=== PATIENT | female | born 1975 | race Caucasian/White ===

== ENCOUNTER → 2017-09-08 11:06 | Outpatient (CLI) | payer OTHER, BC, SELFPAY ==
--- NOTE | 2017-09-08 11:16 | XR_ITS ---
EXAM: XR lumbar spine min 4V HISTORY: ITS.REASON: RT LEG NUMBNESS, RT HIP PAIN ORDERING PHYSICIAN: April Ramirez PATIENT AGE: 42 years COMPARISON: None FINDINGS: There is mild lumbar scoliosis convex left. There is mild multilevel degenerative disc disease which is worse at L4-L5 with 8 mm anterolisthesis of L4 with bilateral pars defect involving L4. No acute fracture or dislocation. Mild degenerative disc disease also at L2-L3. No lytic or blastic change. Unremarkable SI joints. IMPRESSION: Grade 1 spondylolytic spondylolisthesis of L4 on L5 with degenerative disc disease
--- NOTE | 2017-09-08 11:16 | XR_ITS ---
XR hip RT 2-3V w/pelvis HISTORY: ITS.REASON: RT LEG NUMBNESS, RT HIP PAIN ORDERING PHYSICIAN: April Ramirez PATIENT AGE: 42 years COMPARISON: None FINDINGS: No fracture or dislocation is evident. No significant degenerative change. No lytic or blastic change. Unremarkable soft tissues IMPRESSION: Negative hip
== END ==
PROVIDERS: PCP Internal Medicine Adolescent Medicine; Visit Provider Nurse Practitioner Family
DX: M25.551 Pain in right hip (principal); R20.0 Anesthesia of skin
CPT/HCPCS: 72110; 73502

== ENCOUNTER 2017-10-07 08:30 | Outpatient (RCR) | payer OTHER, BC, SELFPAY | END 2017-10-07 12:05 | disposition home or self-care (01) | LOC: PT 08:30 | PROVIDERS: Family Provider Internal Medicine; PCP Internal Medicine Adolescent Medicine; Visit Provider Nurse Practitioner Family | DX: M25.551 Pain in right hip (principal) | CPT/HCPCS: 97110 ==

== ENCOUNTER → 2017-10-15 13:30 | Outpatient (CLI) | payer OTHER, BC, SELFPAY ==
--- NOTE | 2017-10-15 13:33 | MR_ITS ---
MR lumbar spine wo con, MR 3-d myelogram/MRCP HISTORY: Acute right-sided low back pain with sciatica and right leg pain with decreased sensation down the right leg ITS.REASON: ACUTE RIDE SIDED LOW BACK PAIN WITH SCIATICA ORDERING PHYSICIAN: Shaun García MD PATIENT AGE: 42 years COMPARISON: Radiograph of 09/08/2017 TECHNIQUE: Standard multiplanar multiecho sequences are performed without contrast. 3-D MIP and myelographic images are also rendered and reviewed FINDINGS: There is mild lumbar scoliosis convex left. The spinal cord ends at the L1-L2 level. L1-L2 and L2-L3 show mild disc desiccation. L3-L4: Mild disc desiccation with facet and ligamentum flavum hypertrophy with mild right lateral recess narrowing. L4-L5: Degenerative disc disease. Grade 1 spondylitic spondylolisthesis with bilateral pars defects are present at L4. There is 5 mm anterolisthesis of L4 and there is left lateral translation of L4 on L5 of approximately 6 mm. There is bulging disc at this level which is eccentric towards the right with minimal central disc protrusion also slightly eccentric toward the right. There is moderate to severe right-sided foraminal narrowing and there is transverse narrowing of the canal at 8 mm from the facet and ligamentum hypertrophy. There is moderate left-sided foraminal narrowing. Endplate osteophytes are present at this level. L5-S1: Mild disc desiccation with bulging disc and small central disc protrusion is slightly eccentric toward the left. T1 and T2 hyperintensities noted at L3 vertebral body posteriorly consistent with a lipoma or lipid rich hemangioma. IMPRESSION: 1. L4-L5: Degenerative disc disease. Grade 1 spondylitic spondylolisthesis with bilateral pars defects are present at L4. There is 5 mm anterolisthesis of L4 and there is left lateral translation of L4 on L5 of approximately 6 mm. There is bulging disc at this level which is eccentric towards the right with minimal central disc protrusion also slightly eccentric toward the right. There is moderate to severe right-sided foraminal narrowing and there is transverse narrowing of the canal at 8 mm from the facet and ligamentum hypertrophy. There is moderate left-sided foraminal narrowing. Endplate osteophytes are present at this level. 2. L5-S1: Mild disc desiccation with bulging disc and small central disc protrusion is slightly eccentric toward the left. 3. Mild lumbar scoliosis convex left with multilevel lumbar spondylosis and grade 1 spondylolytic spondylolisthesis of L4 on L5 with transverse canal stenosis at that level
== END ==
PROVIDERS: Family Provider Internal Medicine; PCP Internal Medicine Adolescent Medicine; Visit Provider Internal Medicine Adolescent Medicine
DX: M54.5 Low back pain (principal)
CPT/HCPCS: 72148; 76376

== ENCOUNTER → 2017-11-01 14:49 | Outpatient (POV) | payer OTHER, BC, SELFPAY ==
[2017-11-01 15:33] VITALS: BP 171/101; PULSE 63; RESP 18; O2SAT 96; BMI 41.8
--- NOTE | 2017-11-01 17:25 | HMH.PMCON ---
Assessment and Plan (1) Bulging lumbar disc Current visit: Yes Status: Chronic Category: Medical Code(s): M51.26 - Other intervertebral disc displacement, lumbar region - Assessment and plan all Dx Assessment and Plan for all problems:: I believe that this patient would do well with a lumbar epidural steroid injection at L4-L5. I also believe that the patient should still keep her appointment with her neurosurgeon. Patient is not on any pain medication. I will start her on gabapentin 100 mg 1 tab p.o. 3 times daily. I discussed starting slowly and titrating up as tolerated. Patient is currently on anti-inflammatory medications with no relief. Patient also tried physical therapy with no relief. Patient's Amadou was reviewed and appropriate. If the patient does well and tolerating the 100 mg gabapentin 3 times daily we will increase her to 300 mg 3 times daily. This note was dictated using voice recognition software may contain errors or omissions HPI - Data of Consult Consult date: 11/01/17 Requesting Physician: Sandra Laughlin APRN Primary Care Provider: Shaun García MD Family Provider: Jean-Pierre Foster MD - Consult Narrative Reason for consult: Chronic back pain and leg pain History of present illness: Ms. Jones is a 42 year old female Who presents today to discuss her back pain and leg pain. Patient states it was gradual in onset. Patient states standing increases her pain while sitting decreases her pain. Patient rates her pain as a 0 right now she is sitting. 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 Patient has tried and failed physical therapy, anti-inflammatories. Patient states that the pain is in her low back and radiates into her bilateral legs right being more prominent than left. Has had a recent MRI in her primary care physician her referral to neurosurgery. CC: Sandra Laughlin APRN [facility] History I have reviewed the patient's past medical history: Yes Medical History: Reports:: Diabetes Mellitus Type 2, Hypertension Denies:: Diabetes Mellitus Type 1 - *Social History Educational Level: Completed College Alcohol Intake: never Occupational Status: employed Household Members: spouse - Psychiatric History Expresses thoughts of harming self/others: None Suicide Plan Description: No Plan *Family Hx:: Diabetes Review of Systems - Review of Systems ROS General: no recent weight change, no fever, no sleep disturbances Respiratory: no cough, no shortness of air, no recurring pulmonary infections Cardiovascular/Peripheral Vascular: No chest pain, No palpitations, no edema, no shortness of breath. Gastrointestinal: no incontinence, normal bowel movements reported Genitourinary: no incontinence Musculoskeletal: Back pain, right leg pain Psychiatric: normal mood/ affect, Neurological: [denies weakness in extremities], [denies balance issues] Meds Home Medications Medication Instructions Recorded Confirmed Type Diclofenac Sodium [Diclofenac 75mg 75 mg PO BID 11/01/17 11/01/17 History Tab] Metformin HCl [Metformin HCl] 1,000 mg PO BID 11/01/17 11/01/17 History Allergies Allergy/AdvReac Type Severity Reaction Status Date / Time lisinopril AdvReac Verified 11/01/17 15:06 Objective Vital signs: Pulse Resp BP Pulse Ox 63 18 171/101 96 11/01/17 15:33 11/01/17 15:33 11/01/17 15:33 11/01/17 15:33 Narrative: Physical Exam General: Alert and oriented x3, no acute distress, pleasant and cooperative, [on room air] Lungs: Resps E/U, Symmetrical chest expansion, Eyes: PERRL Musculoskeletal: Flexion and extension of lumbar spine somewhat guarded secondary to pain, deep tendon reflexes normal, strength in upper and lower extremities [5/5], slightly into gait noted, positive straight leg test at 30? bilaterally. Neurological: speech clear, supervisor pit and auxiliaries equal, no gross sensory deficitsIMPRES
--- NOTE | 2017-11-01 17:28 | P.CONS_ITS ---
Assessment and Plan (1) Bulging lumbar disc Current visit: Yes Status: Chronic Category: Medical Code(s): M51.26 - Other intervertebral disc displacement, lumbar region - Assessment and plan all Dx Assessment and Plan for all problems:: I believe that this patient would do well with a lumbar epidural steroid injection at L4-L5. I also believe that the patient should still keep her appointment with her neurosurgeon. Patient is not on any pain medication. I will start her on gabapentin 100 mg 1 tab p.o. 3 times daily. I discussed starting slowly and titrating up as tolerated. Patient is currently on anti- inflammatory medications with no relief. Patient also tried physical therapy with no relief. Patient's Amadou was reviewed and appropriate. If the patient does well and tolerating the 100 mg gabapentin 3 times daily we will increase her to 300 mg 3 times daily. This note was dictated using voice recognition software may contain errors or omissions HPI - Data of Consult Consult date: 11/01/17 Requesting Physician: Sandra Laughlin APRN Primary Care Provider: Shaun García MD Family Provider: Jean-Pierre Foster MD - Consult Narrative Reason for consult: Chronic back pain and leg pain History of present illness: Ms. Jones is a 42 year old female Who presents today to discuss her back pain and leg pain. Patient states it was gradual in onset. Patient states standing increases her pain while sitting decreases her pain. Patient rates her pain as a 0 right now she is sitting. 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 Patient has tried and failed physical therapy, anti-inflammatories. Patient states that the pain is in her low back and radiates into her bilateral legs right being more prominent than left. Has had a recent MRI in her primary care physician her referral to neurosurgery. CC: Sandra Laughlin APRN [facility] History I have reviewed the patient's past medical history: Yes Medical History: Reports:: Diabetes Mellitus Type 2, Hypertension Denies:: Diabetes Mellitus Type 1 - *Social History Educational Level: Completed College Alcohol Intake: never Occupational Status: employed Household Members: spouse - Psychiatric History Expresses thoughts of harming self/others: None Suicide Plan Description: No Plan *Family Hx:: Diabetes Review of Systems - Review of Systems ROS General: no recent weight change, no fever, no sleep disturbances Respiratory: no cough, no shortness of air, no recurring pulmonary infections Cardiovascular/Peripheral Vascular: No chest pain, No palpitations, no edema, no shortness of breath. Gastrointestinal: no incontinence, normal bowel movements reported Genitourinary: no incontinence Musculoskeletal: Back pain, right leg pain Psychiatric: normal mood/ affect, Neurological: [denies weakness in extremities], [denies balance issues] Meds Home Medications Medication Instructions Recorded Confirmed Type Diclofenac Sodium [Diclofenac 75mg 75 mg PO BID 11/01/17 11/01/17 History Tab] Metformin HCl [Metformin HCl] 1,000 mg PO BID 11/01/17 11/01/17 History Allergies Allergy/AdvReac Type Severity Reaction Status Date / Time lisinopril AdvReac Verified 11/01/17 15:06 Objective Vital signs: Pulse Resp BP Pulse Ox 63 18 171/101 96 11/01/17 15:33 11/01/17 15:33 11/01/17 1
--- NOTE | 2017-11-17 08:47 | PC.PHONENOTE ---
called in Rx for Gabapentin 300mg TID with 2 refills to [facility] pharmacy in [place], after confirming medication dose with ADILENE Urrutia
== END ==
PROVIDERS: Family Provider Internal Medicine; PCP Internal Medicine Adolescent Medicine; Visit Provider Clinical Nurse Specialist Family Health
DX: M51.26 Other intervertebral disc displacement, lumbar region (principal)
CPT/HCPCS: 99202

== ENCOUNTER → 2017-11-11 13:52 | Outpatient (POV) | payer OTHER, BC, SELFPAY ==
--- NOTE | 2017-11-11 | XR_ITS ---
EXAM: XR lumbar spine min 4V HISTORY: ITS.REASON: BACK PAIN ORDERING PHYSICIAN: Reilly Mckeon PATIENT AGE: 42 years COMPARISON: 09/08/2017 TECHNIQUE: Standing flexion and extension and neutral lateral images are obtained along with an AP view of the lumbar spine. FINDINGS: There is grade 2 spondylolisthesis of L4 on L5 with degenerative disc disease at that level. In the neutral position this measures approximately 11 mm increasing to 16 mm on the flexion images and proximal 15 mm on the extension images. There is degenerative disc disease from L1 to S1 with mild lumbar scoliosis convex left. IMPRESSION: Lumbar spondylosis with grade 2 spondylolisthesis of L4 on L5 slightly increases with flexion and extension compared to standing neutral position
== END ==
PROVIDERS: Family Provider Internal Medicine; PCP Internal Medicine Adolescent Medicine; Visit Provider Neurological Surgery
DX: M51.26 Other intervertebral disc displacement, lumbar region (principal)
CPT/HCPCS: 72110

== ENCOUNTER → 2017-12-13 11:23 | Outpatient (POV) | payer OTHER, BC, SELFPAY ==
[2017-12-13 11:52] VITALS: BP 140/73; PULSE 57; RESP 20; O2SAT 98; BMI 41.0
--- NOTE | 2017-12-13 12:04 | HMH.PAINSOAP ---
[facility] Pain Management SOAP Note Subjective:: Patient is a pleasant 42-year-old white female who we are treating for low back pain with lumbar radiculopathy. Patient had a neurosurgical consultation which showed that she is potentially a surgical candidate patient would like to try conservative measures prior to committing to surgery. Patient is following up after lumbar epidural steroid injection. She reports 90% relief for over a week. Patient's pain has begun to return. Patient rates her pain a 4 out of 10 while she is sitting down. Patient has numbness in her right leg going to her toes. Patient also on gabapentin 300 mg 1 p.o. 3 times daily she denies any side effects with this medication. Patient is interested in continuing with injective therapy and completing 3 lumbar epidural injection steroid injections in order to see if this therapy will benefit her. ROS General: no recent weight change, no fever, no sleep disturbances Respiratory: no cough, no shortness of air, no recurring pulmonary infections Cardiovascular/Peripheral Vascular: No chest pain, No palpitations, no edema, no shortness of breath. Gastrointestinal: no incontinence, normal bowel movements reported Genitourinary: no incontinence Musculoskeletal: Back pain, right leg pain Psychiatric: normal mood/ affect, Neurological: This in right lower extremity at times, [denies balance issues] Objective:: Physical Exam General: Alert and oriented x3, no acute distress, pleasant and cooperative, [on room air] Lungs: Resps E/U, Symmetrical chest expansion, Eyes: PERRL Musculoskeletal: Flexion and extension of bar spine somewhat guarded secondary to pain, diminished reflexes in right lower extremity, strength in upper and lower extremities [5/5], [abnormal gait noted] Neurological: speech clear, leasing coordinator equal, no gross sensory deficits Assessment:: Degenerative disc disease of the lumbar spine with lumbar radiculopathy Plan:: We will increase her gabapentin to 600 mg 1 p.o. 3 times daily at her next refill. Patient denies any side effects to this medication. Patient is still working full-time. Patient is a potential neurosurgical candidate however she wants to try injective therapy prior to committing to surgery. Patient had significant relief with her last injection and wishes to repeat it. Patient tried and failed anti-inflammatories, medications, for therapy. I will follow-up with this patient after her second lumbar epidural steroid injection.. This note was dictated using voice recognition software and may contain errors or omissions
--- NOTE | 2017-12-13 12:07 | P.CONS_ITS ---
[facility] Pain Management SOAP Note Subjective:: Patient is a pleasant 42-year-old white female who we are treating for low back pain with lumbar radiculopathy. Patient had a neurosurgical consultation which showed that she is potentially a surgical candidate patient would like to try conservative measures prior to committing to surgery. Patient is following up after lumbar epidural steroid injection. She reports 90% relief for over a week. Patient's pain has begun to return. Patient rates her pain a 4 out of 10 while she is sitting down. Patient has numbness in her right leg going to her toes. Patient also on gabapentin 300 mg 1 p.o. 3 times daily she denies any side effects with this medication. Patient is interested in continuing with injective therapy and completing 3 lumbar epidural injection steroid injections in order to see if this therapy will benefit her. ROS General: no recent weight change, no fever, no sleep disturbances Respiratory: no cough, no shortness of air, no recurring pulmonary infections Cardiovascular/Peripheral Vascular: No chest pain, No palpitations, no edema, no shortness of breath. Gastrointestinal: no incontinence, normal bowel movements reported Genitourinary: no incontinence Musculoskeletal: Back pain, right leg pain Psychiatric: normal mood/ affect, Neurological: This in right lower extremity at times, [denies balance issues] Objective:: Physical Exam General: Alert and oriented x3, no acute distress, pleasant and cooperative, [ on room air] Lungs: Resps E/U, Symmetrical chest expansion, Eyes: PERRL Musculoskeletal: Flexion and extension of bar spine somewhat guarded secondary to pain, diminished reflexes in right lower extremity, strength in upper and lower extremities [5/5], [abnormal gait noted] Neurological: speech clear, manager food safety equal, no gross sensory deficits Assessment:: Degenerative disc disease of the lumbar spine with lumbar radiculopathy Plan:: We will increase her gabapentin to 600 mg 1 p.o. 3 times daily at her next refill. Patient denies any side effects to this medication. Patient is still working full-time. Patient is a potential neurosurgical candidate however she wants to try injective therapy prior to committing to surgery. Patient had significant relief with her last injection and wishes to repeat it. Patient tried and failed anti-inflammatories, medications, for therapy. I will follow- up with this patient after her second lumbar epidural steroid injection.. This note was dictated using voice recognition software and may contain errors or omissions
--- NOTE | 2017-12-14 12:54 | PC.PHONENOTE ---
12/13/17--called in Rx Gabapentin 600mg TID with 2 refills to pt's pharmacy
== END ==
PROVIDERS: Family Provider Internal Medicine; PCP Internal Medicine Adolescent Medicine; Visit Provider Clinical Nurse Specialist Family Health
DX: M54.16 Radiculopathy, lumbar region (principal)
CPT/HCPCS: 99212

== ENCOUNTER → 2018-01-17 15:21 | Outpatient (POV) | payer OTHER, BC, SELFPAY ==
--- NOTE | 2018-01-17 16:09 | HMH.PAINSOAP ---
[facility] Pain Management SOAP Note Subjective:: Patient is a 42-year-old white female who presents today for follow-up after her second lumbar epidural steroid injection. She states she did get relief after 3 or 4 days. Patient is not having long-term relief with this. Patient is interested in finishing the third of the lumbar epidural steroid injection series. Patient has been deemed a surgical candidate. However she would like to try conservative treatments including epidural injections prior to this decision. Patient also is still working full-time. Patient is currently on gabapentin 600 mg 1 4 times daily. Patient is also asking if there is any other medications that she would be able to take to help her with her shifts at work. ROS General: no recent weight change, no fever, no sleep disturbances Respiratory: no cough, no shortness of air, no recurring pulmonary infections Cardiovascular/Peripheral Vascular: No chest pain, No palpitations, no edema, no shortness of breath. Gastrointestinal: no incontinence, normal bowel movements reported Genitourinary: no incontinence Musculoskeletal: Back pain, bilateral leg pain Psychiatric: normal mood/ affect, [denies depression], [denies anxiety] Neurological: [denies weakness in extremities], [denies balance issues] Objective:: Physical Exam General: Alert and oriented x3, no acute distress, pleasant and cooperative, [on room air] Lungs: Resps E/U, Symmetrical chest expansion, Eyes: PERRL Musculoskeletal: Flexion and extension of lumbar spine somewhat guarded secondary to pain, deep tendon reflexes normal, strength in upper and lower extremities [5/5], antalgic gait noted, positive straight leg raise test bilaterally at 30? Neurological: speech clear, ict project manager equal, no gross sensory deficits Assessment:: Degenerative disc disease of the lumbar spine with lumbar radiculopathy Plan:: We will schedule her last L4-L5 lumbar epidural steroid injection. I believe that after the completion of this she will be able to make a better decision in regards to surgery. Patient and I had a discussion about medications. We will start her on tramadol 50 mg 1 p.o. 3 times daily as needed. Patient's BNE #[id number] reviewed and appropriate. Dr. Cortes has reviewed this and agrees with this plan of care. I will follow-up with the patient after her third lumbar epidural steroid injection. Patient's tried and failed stretching, physical therapy, anti-inflammatories, medications. This note was dictated using voice recognition software and may contain errors or omissions
--- NOTE | 2018-01-17 16:12 | P.CONS_ITS ---
[facility] Pain Management SOAP Note Subjective:: Patient is a 42-year-old white female who presents today for follow-up after her second lumbar epidural steroid injection. She states she did get relief after 3 or 4 days. Patient is not having long-term relief with this. Patient is interested in finishing the third of the lumbar epidural steroid injection series. Patient has been deemed a surgical candidate. However she would like to try conservative treatments including epidural injections prior to this decision. Patient also is still working full-time. Patient is currently on gabapentin 600 mg 1 4 times daily. Patient is also asking if there is any other medications that she would be able to take to help her with her shifts at work. ROS General: no recent weight change, no fever, no sleep disturbances Respiratory: no cough, no shortness of air, no recurring pulmonary infections Cardiovascular/Peripheral Vascular: No chest pain, No palpitations, no edema, no shortness of breath. Gastrointestinal: no incontinence, normal bowel movements reported Genitourinary: no incontinence Musculoskeletal: Back pain, bilateral leg pain Psychiatric: normal mood/ affect, [denies depression], [denies anxiety] Neurological: [denies weakness in extremities], [denies balance issues] Objective:: Physical Exam General: Alert and oriented x3, no acute distress, pleasant and cooperative, [ on room air] Lungs: Resps E/U, Symmetrical chest expansion, Eyes: PERRL Musculoskeletal: Flexion and extension of lumbar spine somewhat guarded secondary to pain, deep tendon reflexes normal, strength in upper and lower extremities [5/5], antalgic gait noted, positive straight leg raise test bilaterally at 30? Neurological: speech clear, production grip equal, no gross sensory deficits Assessment:: Degenerative disc disease of the lumbar spine with lumbar radiculopathy Plan:: We will schedule her last L4-L5 lumbar epidural steroid injection. I believe that after the completion of this she will be able to make a better decision in regards to surgery. Patient and I had a discussion about medications. We will start her on tramadol 50 mg 1 p.o. 3 times daily as needed. Patient's BEN # [id number] reviewed and appropriate. Dr. Cortes has reviewed this and agrees with this plan of care. I will follow-up with the patient after her third lumbar epidural steroid injection. Patient's tried and failed stretching, physical therapy, anti-inflammatories, medications. This note was dictated using voice recognition software and may contain errors or omissions
[2018-01-17 16:16] VITALS: BP 152/83; PULSE 79; RESP 18; O2SAT 98; BMI 41.0
--- NOTE | 2018-01-18 09:36 | PC.PHONENOTE ---
01/14/18-Called in Rx for Gabapentin 600mg QID with no refills and Tramadol 50mg TID with no refills per provider order
== END ==
PROVIDERS: Family Provider Internal Medicine; PCP Internal Medicine Adolescent Medicine; Visit Provider Clinical Nurse Specialist Family Health
DX: M54.16 Radiculopathy, lumbar region (principal)
CPT/HCPCS: 99212

== ENCOUNTER → 2018-03-08 09:47 | Outpatient (POV) | payer OTHER, BC, SELFPAY ==
[2018-03-08 10:03] VITALS: BP 142/72; PULSE 84; RESP 18; O2SAT 98; BMI 44.1
--- NOTE | 2018-03-08 12:54 | HMH.PAINSOAP ---
[facility] Pain Management SOAP Note Subjective:: Patient is a pleasant 43-year-old white female who we are treating for low back pain with lumbar radiculopathy symptoms. Patient status post 3 lumbar epidural steroid injections. Patient did not get any relief from her last epidural injection. Patient is a surgical candidate. Patient states she does not want to have surgery. At last visit Dr. Cortes talk to her about how he believed that she should proceed with surgical intervention prior to trying a neurostimulator. Patient's currently on gabapentin 600 mg 1 p.o. 4 times daily and tramadol 50 mg 1 p.o. 3 times daily. Patient states that this does help somewhat. Patient's BEN #[id number] reviewed and appropriate. ROS General: no recent weight change, no fever, no sleep disturbances Respiratory: no cough, no shortness of air, no recurring pulmonary infections Cardiovascular/Peripheral Vascular: No chest pain, No palpitations, no edema, no shortness of breath. Gastrointestinal: no incontinence, normal bowel movements reported Genitourinary: no incontinence Musculoskeletal: Back pain, leg pain Psychiatric: normal mood/ affect Neurological: [denies weakness in extremities], [denies balance issues] Objective:: Physical Exam General: Alert and oriented x3, no acute distress, pleasant and cooperative, [on room air] Lungs: Resps E/U, Symmetrical chest expansion, Eyes: PERRL Musculoskeletal: Flexion and extension of lumbar spine somewhat guarded secondary to pain, deep tendon reflexes normal, strength in upper and lower extremities [5/5], [abnormal gait noted] Neurological: speech clear, paint roller cover machine 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 4 times daily and tramadol 50 mg 1 p.o. 3 times daily. I will follow-up with this patient in 1 month. Patient would like to rediscuss neuro stimulation. This note was dictated using voice recognition software and may contain errors or omissions
--- NOTE | 2018-03-08 12:57 | P.CONS_ITS ---
[facility] Pain Management SOAP Note Subjective:: Patient is a pleasant 43-year-old white female who we are treating for low back pain with lumbar radiculopathy symptoms. Patient status post 3 lumbar epidural steroid injections. Patient did not get any relief from her last epidural injection. Patient is a surgical candidate. Patient states she does not want to have surgery. At last visit Dr. Cortes talk to her about how he believed that she should proceed with surgical intervention prior to trying a neurostimulator. Patient's currently on gabapentin 600 mg 1 p.o. 4 times daily and tramadol 50 mg 1 p.o. 3 times daily. Patient states that this does help somewhat. Patient's BEN #[id number] reviewed and appropriate. ROS General: no recent weight change, no fever, no sleep disturbances Respiratory: no cough, no shortness of air, no recurring pulmonary infections Cardiovascular/Peripheral Vascular: No chest pain, No palpitations, no edema, no shortness of breath. Gastrointestinal: no incontinence, normal bowel movements reported Genitourinary: no incontinence Musculoskeletal: Back pain, leg pain Psychiatric: normal mood/ affect Neurological: [denies weakness in extremities], [denies balance issues] Objective:: Physical Exam General: Alert and oriented x3, no acute distress, pleasant and cooperative, [ on room air] Lungs: Resps E/U, Symmetrical chest expansion, Eyes: PERRL Musculoskeletal: Flexion and extension of lumbar spine somewhat guarded secondary to pain, deep tendon reflexes normal, strength in upper and lower extremities [5/5], [abnormal gait noted] Neurological: speech clear, manager operating equal, no gross sensory deficits Assessment:: Degenerative disc disease of lumbar spine with lumbar radiculopathy Plan:: Patient is to continue on her gabapentin 600 mg 1 p.o. 4 times daily and tramadol 50 mg 1 p.o. 3 times daily. I will follow-up with this patient in 1 month. Patient would like to rediscuss neuro stimulation. This note was dictated using voice recognition software and may contain errors or omissions
== END ==
PROVIDERS: Family Provider Internal Medicine; PCP Internal Medicine Adolescent Medicine; Visit Provider Clinical Nurse Specialist Family Health
DX: M54.16 Radiculopathy, lumbar region (principal)
CPT/HCPCS: 99212

== ENCOUNTER → 2018-03-25 10:44 | Outpatient (POV) | payer OTHER, BC, SELFPAY ==
[2018-03-25 11:23] VITALS: BP 144/87; PULSE 74; RESP 20; O2SAT 98; BMI 44.1
--- NOTE | 2018-03-25 11:32 | P.CONS_ITS ---
[facility] Pain Management SOAP Note Subjective:: This patient is a pleasant 43-year-old white female who we are treating for low back pain with lumbar radicular symptoms. She had only gotten temporary relief from the lumbar epidural steroid injections. She still has significant right leg radicular symptoms. She was told she needed surgery by Dr. Mckeon. However , because of financial reasons she is unable to have surgery at this time. We will temporize her symptoms to keep her comfortable until she can have definitive treatment. I do believe that she would benefit from medial branch blocks to L4-5 and L5-S1 on the right side. We will plan on right sided medial branch blocks of L4-5 and L5-S1. She also may benefit from a transforaminal epidural steroid injection at L4-L5. Objective:: Alert and oriented ?3 no acute distress. Patient has an antalgic gait. Motor strength of the lower extremities is 4 out of 5 on the right and 5 out of 5 on the left. There is no gross sensory deficit at this time. Assessment:: Degenerative disc disease of lumbar spine with lumbar radiculopathy symptoms down the right leg with bulging disc at L4-L5 and facet arthropathy at L4-5 and L5-S1. Plan:: We will seek approval for right sided medial branch blocks of L4-L5 and L5-S1. We will reevaluate symptoms after these injections. She also may benefit from right-sided transforaminal epidural steroid injection at L4-L5 in the future. We will also give her prednisone 20 mg 1 tablet twice a day for 5 days to help with her acute symptoms.
== END ==
PROVIDERS: Family Provider Internal Medicine; PCP Internal Medicine Adolescent Medicine; Visit Provider Anesthesiology
DX: M51.16 Intervertebral disc disorders with radiculopathy, lumbar region (principal); M51.26 Other intervertebral disc displacement, lumbar region; M54.06 Panniculitis affecting regions of neck and back, lumbar region
CPT/HCPCS: 99212

== ENCOUNTER → 2018-04-25 15:24 | Outpatient (POV) | payer OTHER, BC, SELFPAY ==
[2018-04-25 15:33] VITALS: BP 148/76; PULSE 88; RESP 18; O2SAT 98; BMI 42.5
--- NOTE | 2018-04-25 15:35 | HMH.PAINSOAP ---
[facility] Pain Management SOAP Note Subjective:: Patient is a pleasant 43-year-old white female who is following up after lumbar medial branch block. Patient states she has been pain-free since the injection. Patient has been hiking and much more functional. Patient would like to follow-up on an as-needed basis for these injections. We did briefly talk about a RFA. Patient may be interested in this in the future. ROS General: no recent weight change, no fever, no sleep disturbances Respiratory: no cough, no shortness of air, no recurring pulmonary infections Cardiovascular/Peripheral Vascular: No chest pain, No palpitations, no edema, no shortness of breath. Gastrointestinal: no incontinence, normal bowel movements reported Genitourinary: no incontinence Musculoskeletal: Back pain Psychiatric: normal mood/ affect Neurological: [denies weakness in extremities], [denies balance issues] Objective:: Physical Exam General: Alert and oriented x3, no acute distress, pleasant and cooperative, [on room air] Lungs: Resps E/U, Symmetrical chest expansion, Eyes: PERRL Musculoskeletal: Flexion and extension of lumbar spine somewhat guarded secondary to pain, deep tendon reflexes normal, strength in upper and lower extremities [5/5], normal gait noted Neurological: speech clear, blue 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 Patient's been instructed to call the office if she needs anything prior to this appointment. This note was dictated using voice recognition software and may contain errors or omissions
== END ==
PROVIDERS: Family Provider Internal Medicine; PCP Internal Medicine Adolescent Medicine; Visit Provider Clinical Nurse Specialist Family Health
DX: M51.36 Other intervertebral disc degeneration, lumbar region (principal); M47.896 Other spondylosis, lumbar region; M54.06 Panniculitis affecting regions of neck and back, lumbar region
CPT/HCPCS: 99213

== ENCOUNTER → 2018-06-13 09:57 | Outpatient (POV) | payer OTHER, BC, SELFPAY ==
[2018-06-13 10:10] VITALS: BP 160/85; PULSE 75; RESP 18; O2SAT 98; BMI 45.6
--- NOTE | 2018-06-13 10:50 | HMH.PAINSOAP ---
[facility] Pain Management SOAP Note Subjective:: Patient is a pleasant 43-year-old white female who presents today for follow-up. Patient has had good relief we will branch blocks bilaterally at L3-L4 L4-L5 L5-S1. Patient has had 3 months relief. Patient states her pain has returned she rates an 8 out of 10. Like to move forward with another round of medial branch blocks. Patient is not on any anticoagulation therapy. ROS General: no recent weight change, no fever, no sleep disturbances Respiratory: no cough, no shortness of air, no recurring pulmonary infections Cardiovascular/Peripheral Vascular: No chest pain, No palpitations, no edema, no shortness of breath. Gastrointestinal: no incontinence, normal bowel movements reported Genitourinary: no incontinence Musculoskeletal: Back pain Psychiatric: normal mood/ affect Neurological: [denies weakness in extremities], [denies balance issues] Objective:: Physical Exam General: Alert and oriented x3, no acute distress, pleasant and cooperative, [on room air] Lungs: Resps E/U, Symmetrical chest expansion, Eyes: PERRL Musculoskeletal: Flexion and extension of lumbar spine somewhat guarded secondary to pain, deep tendon reflexes normal, strength in upper and lower extremities [5/5], slightly antalgic gait noted, positive Kemps test bilaterally Neurological: speech clear, 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 Given the efficacy in the past I believe it would be beneficial. I will follow-up with the patient after her injection. This note was dictated using voice recognition software and may contain errors or omissions
--- NOTE | 2018-06-13 10:53 | P.CONS_ITS ---
[facility] Pain Management SOAP Note Subjective:: Patient is a pleasant 43-year-old white female who presents today for follow-up. Patient has had good relief we will branch blocks bilaterally at L3-L4 L4-L5 L5-S1. Patient has had 3 months relief. Patient states her pain has returned she rates an 8 out of 10. Like to move forward with another round of medial branch blocks. Patient is not on any anticoagulation therapy. ROS General: no recent weight change, no fever, no sleep disturbances Respiratory: no cough, no shortness of air, no recurring pulmonary infections Cardiovascular/Peripheral Vascular: No chest pain, No palpitations, no edema, no shortness of breath. Gastrointestinal: no incontinence, normal bowel movements reported Genitourinary: no incontinence Musculoskeletal: Back pain Psychiatric: normal mood/ affect Neurological: [denies weakness in extremities], [denies balance issues] Objective:: Physical Exam General: Alert and oriented x3, no acute distress, pleasant and cooperative, [on room air] Lungs: Resps E/U, Symmetrical chest expansion, Eyes: PERRL Musculoskeletal: Flexion and extension of lumbar spine somewhat guarded secondary to pain, deep tendon reflexes normal, strength in upper and lower extremities [5/5], slightly antalgic gait noted, positive Kemps test bilaterally Neurological: speech clear, sack 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 Given the efficacy in the past I believe it would be beneficial. I will follow-up with the patient after her injection. This note was dictated using voice recognition software and may contain errors or omissions
== END ==
PROVIDERS: Family Provider Internal Medicine; PCP Internal Medicine Adolescent Medicine; Visit Provider Clinical Nurse Specialist Family Health
DX: M47.896 Other spondylosis, lumbar region (principal); M51.36 Other intervertebral disc degeneration, lumbar region; M46.86 Other specified inflammatory spondylopathies, lumbar region
CPT/HCPCS: 99213

== ENCOUNTER → 2018-07-05 13:15 | Outpatient (POV) | payer OTHER, BC, SELFPAY ==
[2018-07-05 13:35] VITALS: BP 144/81; PULSE 74; RESP 18; O2SAT 98; BMI 45.6
--- NOTE | 2018-07-05 13:46 | HMH.PAINSOAP ---
[facility] Pain Management SOAP Note Subjective:: Patient is a pleasant 43-year-old white female who presents today after medial branch block. Patient had extremely good relief with first round of blocks however she has not had as much relief with this round she would like to try one more time to see if she has any more success with it. Patient is still having a great deal of pain in her lower back. Patient on gabapentin and tramadol and is asking for something different A. We will try Lyrica. Patient is in need of back surgery however she is trying to avoid this for some time. Patient is going to be going for gastric bypass in September and would like to wait till after that. ROS General: no recent weight change, no fever, no sleep disturbances Respiratory: no cough, no shortness of air, no recurring pulmonary infections Cardiovascular/Peripheral Vascular: No chest pain, No palpitations, no edema, no shortness of breath. Gastrointestinal: no incontinence, normal bowel movements reported Genitourinary: no incontinence Musculoskeletal: Back pain Psychiatric: normal mood/ affect Neurological: [denies weakness in extremities], [denies balance issues] Objective:: Physical Exam General: Alert and oriented x3, no acute distress, pleasant and cooperative, [on room air] Lungs: Resps E/U, Symmetrical chest expansion, Eyes: PERRL Musculoskeletal: Flexion and extension of lumbar spine somewhat guarded secondary to pain, deep tendon reflexes normal, strength in upper and lower extremities [5/5], [abnormal gait noted] Neurological: speech clear, 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 Patient is continuing a home stretching program. Patient is on anti-inflammatories. Patient is not on any anticoagulation therapy. We will conduct daily and give her a 2-week trial of the right if it is beneficial for her we will start her at 75 twice daily. This note was dictated using voice recognition software and may contain errors or omissions
--- NOTE | 2018-07-07 09:34 | PC.PHONENOTE ---
called in Rx for Lyrica 75mg BID #[id number] with no refills per provider order.
== END ==
PROVIDERS: PCP Internal Medicine Adolescent Medicine; Visit Provider Clinical Nurse Specialist Family Health
DX: M51.36 Other intervertebral disc degeneration, lumbar region (principal); M54.06 Panniculitis affecting regions of neck and back, lumbar region; M47.896 Other spondylosis, lumbar region
CPT/HCPCS: 99213

== ENCOUNTER → 2018-08-22 08:10 | Outpatient (POV) | payer OTHER, BC, SELFPAY ==
--- NOTE | 2018-08-22 08:29 | HMH.PAINSOAP ---
[facility] Pain Management SOAP Note Subjective:: Is a pleasant 43-year-old white female who presents today for follow-up after medial branch block. Patient got 80% relief of her symptoms for almost 4 weeks. Patient has had good relief with medial branches in the past. Patient is interested in a RFA. Patient has tried and failed physical therapy, anti-inflammatories, medications. Patient is continuing to do try to work. Patient is unable to function and do activities of daily living with her current pain level. She is continuing a home stretching program. rates her pain today a 6 out of 10 ROS General: no recent weight change, no fever, no sleep disturbances Respiratory: no cough, no shortness of air, no recurring pulmonary infections Cardiovascular/Peripheral Vascular: No chest pain, No palpitations, no edema, no shortness of breath. Gastrointestinal: no incontinence, normal bowel movements reported Genitourinary: no incontinence Musculoskeletal: Back pain Psychiatric: normal mood/ affect, [denies depression], [denies anxiety] Neurological: [denies weakness in extremities], [denies balance issues] Objective:: Physical Exam General: Alert and oriented x3, no acute distress, pleasant and cooperative, [on room air] Lungs: Resps E/U, Symmetrical chest expansion, Eyes: PERRL Musculoskeletal: Flexion and extension of lumbar spine somewhat guarded secondary to pain, deep tendon reflexes normal, strength in upper and lower extremities [5/5], slightly antalgic gait noted, positive Kemps test bilateral lumbar spine, positive facet loading Neurological: speech clear, lasting machine operator equal, no gross sensory deficits Assessment:: Degenerative disc disease lumbar spine with facet arthropathy and lumbar spondylosis Plan:: We will schedule a L3-L4 L4-L5 L5-S1 bilateral RFA. We will start with the right side and then in 2 weeks do the left side. Patient has had successful medial branch block. She is not on any anticoagulation therapy. We will also give her a one-time prescription of [place] 5 mg 1 p.o. 3 times daily to help her with her work until she is able to have a RFA. Patient has been prescribed a controlled substance after being counseled on the medication, medication safety, and possible side effects. BEN report has been obtained and reviewed prior to prescription and found to be appropriate. Opioid contract was reviewed and signed by the patient, and that they have agreed to all of the terms set forth by our compliance program. This note was dictated using voice recognition software and may contain errors or omissions
--- NOTE | 2018-08-22 08:32 | P.CONS_ITS ---
[facility] Pain Management SOAP Note Subjective:: Is a pleasant 43-year-old white female who presents today for follow-up after medial branch block. Patient got 80% relief of her symptoms for almost 4 weeks. Patient has had good relief with medial branches in the past. Patient is interested in a RFA. Patient has tried and failed physical therapy, anti- inflammatories, medications. Patient is continuing to do try to work. Patient is unable to function and do activities of daily living with her current pain level. She is continuing a home stretching program. rates her pain today a 6 out of 10 ROS General: no recent weight change, no fever, no sleep disturbances Respiratory: no cough, no shortness of air, no recurring pulmonary infections Cardiovascular/Peripheral Vascular: No chest pain, No palpitations, no edema, no shortness of breath. Gastrointestinal: no incontinence, normal bowel movements reported Genitourinary: no incontinence Musculoskeletal: Back pain Psychiatric: normal mood/ affect, [denies depression], [denies anxiety] Neurological: [denies weakness in extremities], [denies balance issues] Objective:: Physical Exam General: Alert and oriented x3, no acute distress, pleasant and cooperative, [on room air] Lungs: Resps E/U, Symmetrical chest expansion, Eyes: PERRL Musculoskeletal: Flexion and extension of lumbar spine somewhat guarded secondary to pain, deep tendon reflexes normal, strength in upper and lower extremities [5/5], slightly antalgic gait noted, positive Kemps test bilateral lumbar spine, positive facet loading Neurological: speech clear, 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 We will start with the right side and then in 2 weeks do the left side. Patient has had successful medial branch block. She is not on any anticoagulation therapy. We will also give her a one-time prescription of [place] 5 mg 1 p.o. 3 times daily to help her with her work until she is able to have a RFA. Patient has been prescribed a controlled substance after being counseled on the medication, medication safety, and possible side effects. BEN report has been obtained and reviewed prior to prescription and found to be appropriate. Opioid contract was reviewed and signed by the patient, and that they have agreed to all of the terms set forth by our compliance program. This note was dictated using voice recognition software and may contain errors or omissions
[2018-08-22 08:33] VITALS: BP 138/90; PULSE 68; RESP 18; O2SAT 99; BMI 45.6
== END ==
PROVIDERS: PCP Internal Medicine Adolescent Medicine; Visit Provider Clinical Nurse Specialist Family Health
DX: M51.36 Other intervertebral disc degeneration, lumbar region (principal); M54.06 Panniculitis affecting regions of neck and back, lumbar region; M47.896 Other spondylosis, lumbar region
CPT/HCPCS: 99213

== ENCOUNTER → 2018-09-01 17:00 | Outpatient (CLI) | payer OTHER, BC, SELFPAY ==
[2018-09-02 14:09] LABS: Alanine Aminotransferase 23 U/L (12-78); Albumin Level 3.7 gm/dL (3.4-5.0); Albumin/Globulin Ratio 0.9 (1.1-1.8); Alkaline Phosphatase 73 U/L (46-116); Anion Gap 14.4 mEq/L (5-15); Aspartate Amino Transferase 13 U/L (15-37); Bilirubin,Total 0.5 mg/dL (0.2-1.0); Blood Urea Nitrogen 10 mg/dL (7-18); Calcium 8.7 mg/dL (8.5-10.1); Carbon Dioxide 25 mmol/L (21.0-32.0); Chloride 100 mmol/L (98-107); Chol/HDL Ratio 6.2 (1-3.5); Cholesterol 210 mg/dL (140-200); Creatinine,Serum 0.63 mg/dL (0.55-1.02); Estimated Glomerular Filt Rate 104 ml/min (>60); Ferritin 76 ng/mL (8-388); GFR (African American) 125 ML/MIN (>60); Glucose 156 mg/dL (74-106); HDL Cholesterol 34 mg/dL (29-89); Iron 102 ug/dl (28-170); LDL Cholesterol 147 mg/dL (0-130); Magnesium 1.6 mg/dL (1.4-2.2); Phosphorous 3.1 mg/dL (2.4-4.9); Potassium 4.4 mmoL/L (3.5-5.1); Sodium 135 mmol/L (136-145); Total Protein,Serum 7.7 gm/dL (6.4-8.2); Triglycerides 146 mg/dL (30-200); VLDL Cholesterol 29 mg/dL (0-40)
[2018-09-03 21:52] LABS: Folate 18.4 ng/mL (>3.0); Parathyroid Hormone Intact 29 pg/mL (15-65); Prealbumin 25 mg/dL (12-34); Vitamin D 25 Hydroxy 28.6 ng/mL (30.0-100.0)
[2018-09-05 08:10] LABS: Methylmalonic Acid 99 nmol/L (0-378)
== END ==
PROVIDERS: Visit Provider Nurse Practitioner Family
DX: E66.01 Morbid (severe) obesity due to excess calories (principal)
CPT/HCPCS: 80053; 80061; 82131; 82652; 82728; 82746; 83540; 83735; 83970; 84100; 84134

== ENCOUNTER → 2018-10-24 15:20 | Outpatient (POV) | payer OTHER, BC, SELFPAY ==
[2018-10-24 15:28] VITALS: BP 137/87; PULSE 90; RESP 18; O2SAT 99; BMI 45.6
--- NOTE | 2018-10-24 15:35 | HMH.PAINSOAP ---
[facility] Pain Management SOAP Note Subjective:: Patient is a pleasant 43-year-old white female who we are treating for low back pain. Patient is following up after medial branch block. Patient has had no relief of her symptoms. She rates her pain a 7 out of 10. Patient's on [place] 5 mg 1 p.o. 3 times daily. She states it does not help her much. Patient is planning on having bariatric surgery and I encouraged this. I believe that would be beneficial for her and help alleviate some of her back pain. ROS General: no recent weight change, no fever, no sleep disturbances Respiratory: no cough, no shortness of air, no recurring pulmonary infections Cardiovascular/Peripheral Vascular: No chest pain, No palpitations, no edema, no shortness of breath. Gastrointestinal: no incontinence, normal bowel movements reported Genitourinary: no incontinence Musculoskeletal: Back pain Psychiatric: normal mood/ affect Neurological: [denies weakness in extremities], [denies balance issues] Objective:: Physical Exam General: Alert and oriented x3, no acute distress, pleasant and cooperative, [on room air] Lungs: Resps E/U, Symmetrical chest expansion, Eyes: PERRL Musculoskeletal: Flexion and extension of lumbar spine somewhat guarded secondary to pain, deep tendon reflexes normal, strength in upper and lower extremities [5/5], antalgic gait noted Neurological: speech clear, engagement manager equal, no gross sensory deficits Assessment:: Degenerative disc disease lumbar spine with lumbar spondylosis and facet arthropathy Plan:: We will increase the patient's [place] to 10 mg 1 p.o. 3 times daily we will give her 2 months worth of medication we will see her back in 2 months but this time she should have had her surgical consult for her bariatric surgery. Patient has been prescribed a controlled substance after being counseled on the medication, medication safety, and possible side effects. BEN report has been obtained and reviewed prior to prescription and found to be appropriate. Opioid contract was reviewed and signed by the patient, and that they have agreed to all of the terms set forth by our compliance program. Dr. Cortes has reviewed this note and agrees with this plan of care. This note was dictated using voice recognition software and may contain errors or omissions
== END ==
PROVIDERS: PCP Internal Medicine Adolescent Medicine; Visit Provider Clinical Nurse Specialist Family Health
DX: M51.36 Other intervertebral disc degeneration, lumbar region (principal); M47.816 Spondylosis without myelopathy or radiculopathy, lumbar region; M54.06 Panniculitis affecting regions of neck and back, lumbar region
CPT/HCPCS: 99213

== ENCOUNTER → 2018-10-27 14:25 | Outpatient (CLI) | payer OTHER, BC, SELFPAY ==
--- NOTE | 2018-10-27 14:31 | XR_ITS ---
XR chest 2V HISTORY: Hypertension ITS.REASON: TYPE II DIABETES ORDERING PHYSICIAN: Arlene Frankel PATIENT AGE: 43 years COMPARISON: None FINDINGS: The cardiomediastinal silhouette and pulmonary vascularity are within normal limits. The lungs are clear without infiltrates, suspicious nodules, or pleural effusions. No acute bony abnormalities. IMPRESSION: Negative chest, no acute finding
== END ==
PROVIDERS: PCP Internal Medicine Adolescent Medicine; Visit Provider Physician Assistant
DX: R10.13 Epigastric pain (principal); E11.9 Type 2 diabetes mellitus without complications; E66.01 Morbid (severe) obesity due to excess calories; M54.9 Dorsalgia, unspecified
CPT/HCPCS: 71046; 93005

== ENCOUNTER → 2018-11-15 10:12 | Outpatient (POV) | payer OTHER, BC, SELFPAY ==
[2018-11-15 10:54] VITALS: BP 155/87; PULSE 76; RESP 18; O2SAT 98; BMI 45.6
--- NOTE | 2018-11-15 15:22 | HMH.PAINSOAP ---
[facility] Pain Management SOAP Note Subjective:: Patient is a pleasant 43-year-old white female who presents today for follow-up. Patient is having excruciating pain rating her pain a 7 out of 10. Patient states pain is getting worse. We are currently trying to hold off on back surgery so she can have her gastric bypass. Patient has had success with injections in the past. She is interested in repeating this all of her pain is down her right leg and low back. Patient's been on [place] with no success as far as pain control. Patient is trying to continue to work. ROS General: no recent weight change, no fever, no sleep disturbances Respiratory: no cough, no shortness of air, no recurring pulmonary infections Cardiovascular/Peripheral Vascular: No chest pain, No palpitations, no edema, no shortness of breath. Gastrointestinal: no incontinence, normal bowel movements reported Genitourinary: no incontinence Musculoskeletal: Back pain, leg pain Psychiatric: normal mood/ affect, Neurological: [denies weakness in extremities], [denies balance issues] Objective:: Physical Exam General: Alert and oriented x3, no acute distress, pleasant and cooperative, [on room air] Lungs: Resps E/U, Symmetrical chest expansion, Eyes: PERRL Musculoskeletal: Flexion and extension of lumbar spine somewhat guarded secondary to pain, deep tendon reflexes normal, strength in upper and lower extremities [5/5], [abnormal gait noted] positive straight leg raise test on the right side at 30 degrees Neurological: speech clear, 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 We will write the patient a months worth of Percocet 7.5 mg 1 p.o. 4 times daily. This is only to help her continue working this is a temporary prescription and she understands this. Our goal is to get her to her gastric surgery we will no longer write narcotics at that point. Patient understands. She is not on any anti-coagulation therapy. She is continuing to work full-time and tries to stay as active as possible and continues a home stretching program. Patient has been prescribed a controlled substance after being counseled on the medication, medication safety, and possible side effects. BEN report has been obtained and reviewed prior to prescription and found to be appropriate. Opioid contract was reviewed and signed by the patient, and that they have agreed to all of the terms set forth by our compliance program. Dr griffin has reviewed this chart and agrees with this plan of care
--- NOTE | 2018-11-15 15:25 | P.CONS_ITS ---
[facility] Pain Management SOAP Note Subjective:: Patient is a pleasant 43-year-old white female who presents today for follow-up. Patient is having excruciating pain rating her pain a 7 out of 10. Patient states pain is getting worse. We are currently trying to hold off on back surgery so she can have her gastric bypass. Patient has had success with injections in the past. She is interested in repeating this all of her pain is down her right leg and low back. Patient's been on [place] with no success as far as pain control. Patient is trying to continue to work. ROS General: no recent weight change, no fever, no sleep disturbances Respiratory: no cough, no shortness of air, no recurring pulmonary infections Cardiovascular/Peripheral Vascular: No chest pain, No palpitations, no edema, no shortness of breath. Gastrointestinal: no incontinence, normal bowel movements reported Genitourinary: no incontinence Musculoskeletal: Back pain, leg pain Psychiatric: normal mood/ affect, Neurological: [denies weakness in extremities], [denies balance issues] Objective:: Physical Exam General: Alert and oriented x3, no acute distress, pleasant and cooperative, [on room air] Lungs: Resps E/U, Symmetrical chest expansion, Eyes: PERRL Musculoskeletal: Flexion and extension of lumbar spine somewhat guarded secondary to pain, deep tendon reflexes normal, strength in upper and lower extremities [5/5], [abnormal gait noted] positive straight leg raise test on the right side at 30 degrees Neurological: speech clear, senior economist equal, no gross sensory deficits Assessment:: Degenerative disc disease lumbar spine with lumbar spondylosis and facet arthropathy along with lumbar radiculopathy Plan:: We will schedule right transforaminal epidural at L4-L5 for the patient to see if this is beneficial. We will write the patient a months worth of Percocet 7.5 mg 1 p.o. 4 times daily. This is only to help her continue working this is a temporary prescription and she understands this. Our goal is to get her to her gastric surgery we will no longer write narcotics at that point. Patient understands. She is not on any anti-coagulation therapy. She is continuing to work full-time and tries to stay as active as possible and continues a home str etching program. Patient has been prescribed a controlled substance after being counseled on the medication, medication safety, and possible side effects. BEN report has been obtained and reviewed prior to prescription and found to be appropriate. Opioid contract was reviewed and signed by the patient, and that they have agreed to all of the terms set forth by our compliance program. Dr griffin has reviewed this chart and agrees with this plan of care
== END ==
PROVIDERS: PCP Internal Medicine Adolescent Medicine; Visit Provider Clinical Nurse Specialist Family Health
DX: M51.16 Intervertebral disc disorders with radiculopathy, lumbar region (principal); M47.896 Other spondylosis, lumbar region; M54.06 Panniculitis affecting regions of neck and back, lumbar region
CPT/HCPCS: 99213

== ENCOUNTER → 2018-12-26 08:45 | Outpatient (POV) | payer OTHER, BC, SELFPAY ==
[2018-12-26 09:05] VITALS: BP 155/85; PULSE 75; RESP 18; O2SAT 98; BMI 45.6
--- NOTE | 2018-12-26 09:31 | HMH.PAINSOAP ---
[facility] Pain Management SOAP Note Subjective:: Patient is a pleasant 43-year-old white female who we are treating for low back pain. Patient is status post transforaminal epidural steroid injection. She states she is doing well all of the pain in her right leg has resolved. Most of her pain is in her low back. She had medial branch blocks in the past with good relief she would like to repeat this. Patient was going to move forward with back surgery however due to the loss of her job she is unable to do that at this time. She is rating her pain a 1 out of 10 today. She states that when she is up and moving however it can get up to an 8. ROS General: no recent weight change, no fever, no sleep disturbances Respiratory: no cough, no shortness of air, no recurring pulmonary infections Cardiovascular/Peripheral Vascular: No chest pain, No palpitations, no edema, no shortness of breath. Gastrointestinal: no incontinence, normal bowel movements reported Genitourinary: no incontinence Musculoskeletal: Back pain Psychiatric: normal mood/ affect Neurological: [denies weakness in extremities], [denies balance issues] Objective:: Physical Exam General: Alert and oriented x3, no acute distress, pleasant and cooperative, [on room air] Lungs: Resps E/U, Symmetrical chest expansion, Eyes: PERRL Musculoskeletal: Flexion and extension of lumbar spine somewhat guarded secondary to pain, deep tendon reflexes normal, strength in upper and lower extremities [5/5], antalgic gait noted, positive Kemps test bilaterally, positive facet loading Neurological: speech clear, radio 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 Patient is not on any anticoagulation therapy. She is currently on anti-inflammatories and continues a home stretching program. She is also on Percocet 7.5 mg 1 p.o. 4 times daily. This is a temporary prescription until she has her surgery. Dr. Cortes has reviewed this note and agrees with this plan of care. This note was dictated using voice recognition software and may contain errors or omissions
[2018-12-26 11:39] LABS: Amphetamine/Metha Screen,Urine Negative ng/mL (<1000); Barbiturates Screen,Urine Negative ng/mL (<200); Benzodiazepines Screen,Urine Negative ng/mL (<200); Cannabinoid Screen,Urine Negative ng/mL (<50); Cocaine Screen,Urine Negative ng/mL (<300); Methadone Screen,Urine Negative ng/mL (<300); Opiate Screen,Urine Negative ng/mL (<300); Phencyclidine Screen,Urine Negative ng/mL (<25)
[2019-01-02 13:05] LABS: Opiates Negative (Cutoff=100)
== END ==
PROVIDERS: PCP Internal Medicine Adolescent Medicine; Visit Provider Clinical Nurse Specialist Family Health
DX: M51.36 Other intervertebral disc degeneration, lumbar region (principal); M54.06 Panniculitis affecting regions of neck and back, lumbar region; M47.896 Other spondylosis, lumbar region; Z79.899 Other long term (current) drug therapy
CPT/HCPCS: 80305; 80361; 80365; 99212; G0480

== ENCOUNTER → 2019-02-20 11:23 | Outpatient (POV) | payer BC, SELFPAY ==
[2019-02-20 12:14] VITALS: BP 154/98; PULSE 80; RESP 18; O2SAT 98; BMI 45.6
--- NOTE | 2019-02-20 12:46 | HMH.PAINSOAP ---
[facility] Pain Management SOAP Note Subjective:: Patient is a pleasant 43-year-old white female who presents today for follow-up after lumbar medial branch block at L4-L5 and L5-S1 bilaterally. She reports that she did have 70% relief with this. She does report that her pain has returned to the right side. The patient is currently awaiting insurance approval for bariatric surgery, and is hopeful that this will help in pain relief. The patient also takes Percocet 7.5 mg p.o. 4 times daily and gabapentin 600 mg p.o. 4 times daily. The patient is requesting an increase in her Percocet today. She is also continuing a home stretching program and NSAIDs. Anticoagulation therapy. [facility] #[id number] has been reviewed and is appropriate. ROS General: no recent weight change, no fever, no sleep disturbances Respiratory: no cough, no shortness of air, no recurring pulmonary infections Cardiovascular/Peripheral Vascular: No chest pain, No palpitations, no edema, no shortness of breath. Gastrointestinal: no incontinence, normal bowel movements reported Genitourinary: no incontinence Musculoskeletal: Back pain, right leg pain Psychiatric: normal mood/ affect, [denies depression], [denies anxiety] Neurological: [denies weakness in extremities], [denies balance issues] Objective:: Physical Exam General: Alert and oriented x3, no acute distress, pleasant and cooperative, [on room air] Lungs: Resps E/U, Symmetrical chest expansion, Eyes: PERRL Musculoskeletal: Flexion and extension of lumbar spine somewhat guarded secondary to pain, deep tendon reflexes normal, strength in upper and lower extremities [5/5], normal gait noted Neurological: speech clear, germination testing manager equal, no gross sensory deficits Assessment:: Degenerative disc disease of lumbar spine with lumbar spondylosis and lumbar facet arthropathy Plan:: We will continue the patient's Percocet 7.5 mg 1 tablet p.o. 4 times daily and gabapentin 600 mg 1 tablet p.o. 4 times daily. We did have a discussion concerning an increase in the patient's [place]. He understands that we cannot increase this dose at this time and that this is a short-term treatment until she is able to have her bariatric surgery. The patient understands. We will schedule the patient for a right medial branch block L4-L5 and L5 and S1. We will see the patient back after her procedure and reassess her symptoms at that time. She is been instructed to call the office if she has any concerns prior to her next appointment. Patient has been prescribed a controlled substance after being counseled on the medication, medication safety, and possible side effects. BEN report has been obtained and reviewed prior to prescription and found to be appropriate. Opioid contract was reviewed and signed by the patient, and that they have agreed to all of the terms set forth by our compliance program. Dr. Cortes has reviewed this note and agrees with this plan of care. This note was dictated using voice recognition software and may contain errors or omissions
--- NOTE | 2019-02-20 12:49 | P.CONS_ITS ---
[facility] Pain Management SOAP Note Subjective:: Patient is a pleasant 43-year-old white female who presents today for follow-up after lumbar medial branch block at L4-L5 and L5-S1 bilaterally. She reports that she did have 70% relief with this. She does report that her pain has returned to the right side. The patient is currently awaiting insurance approval for bariatric surgery, and is hopeful that this will help in pain relief. The patient also takes Percocet 7.5 mg p.o. 4 times daily and gabapentin 600 mg p.o. 4 times daily. The patient is requesting an increase in her Percocet today. She is also continuing a home stretching program and NSAIDs. Anticoagulation therapy. [facility] #[id number] has been reviewed and is appropriate. ROS General: no recent weight change, no fever, no sleep disturbances Respiratory: no cough, no shortness of air, no recurring pulmonary infections Cardiovascular/Peripheral Vascular: No chest pain, No palpitations, no edema, no shortness of breath. Gastrointestinal: no incontinence, normal bowel movements reported Genitourinary: no incontinence Musculoskeletal: Back pain, right leg pain Psychiatric: normal mood/ affect, [denies depression], [denies anxiety] Neurological: [denies weakness in extremities], [denies balance issues] Objective:: Physical Exam General: Alert and oriented x3, no acute distress, pleasant and cooperative, [on room air] Lungs: Resps E/U, Symmetrical chest expansion, Eyes: PERRL Musculoskeletal: Flexion and extension of lumbar spine somewhat guarded secondary to pain, deep tendon reflexes normal, strength in upper and lower extremities [5/5], normal gait noted Neurological: speech clear, science and operations officer equal, no gross sensory deficits Assessment:: Degenerative disc disease of lumbar spine with lumbar spondylosis and lumbar facet arthropathy Plan:: We will continue the patient's Percocet 7.5 mg 1 tablet p.o. 4 times daily and gabapentin 600 mg 1 tablet p.o. 4 times daily. We did have a discussion concerning an increase in the patient's [place]. He understands that we cannot increase this dose at this time and that this is a short-term treatment until she is able to have her bariatric surgery. The patient understands. We will schedule the patient for a right medial branch block L4-L5 and L5 and S1. We will see the patient back after her procedure and reassess her symptoms at that time. She is been instructed to call the office if she has any concerns prior to her next appointment. Patient has been prescribed a controlled substance after being counseled on the medication, medication safety, and possible side effects. BEN report has been obtained and reviewed prior to prescription and found to be appropriate. Opioid contract was reviewed and signed by the patient, and that they have agreed to all of the terms set forth by our compliance program. Dr. Cortes has reviewed this note and agrees with this plan of care. This note was dictated using voice recognition software and may contain errors or omissions
== END ==
PROVIDERS: PCP Internal Medicine Adolescent Medicine; Visit Provider Clinical Nurse Specialist Family Health
DX: M51.36 Other intervertebral disc degeneration, lumbar region (principal); M47.896 Other spondylosis, lumbar region; M54.06 Panniculitis affecting regions of neck and back, lumbar region
CPT/HCPCS: 99212

== ENCOUNTER → 2019-04-11 09:12 | Outpatient (POV) | payer BC, SELFPAY ==
--- NOTE | 2019-04-11 09:20 | HMH.PAINSOAP ---
[facility] Pain Management SOAP Note Subjective:: Patient is a pleasant 44-year-old white female who presents today for follow-up after medial branch block at L4-L5 L5-S1. Patient had 80% relief after her injection. Patient has had good relief in the past with medial branch blocks. Patient is interested in moving forward with an RFA of the right side she rates her pain today a 3 out of 10 ROS General: no recent weight change, no fever, no sleep disturbances Respiratory: no cough, no shortness of air, no recurring pulmonary infections Cardiovascular/Peripheral Vascular: No chest pain, No palpitations, no edema, no shortness of breath. Gastrointestinal: no incontinence, normal bowel movements reported Genitourinary: no incontinence Musculoskeletal: Back pain Psychiatric: normal mood/ affect Neurological: [denies weakness in extremities], [denies balance issues] Objective:: Physical Exam General: Alert and oriented x3, no acute distress, pleasant and cooperative, [on room air] Lungs: Resps E/U, Symmetrical chest expansion, \ Eyes: PERRL Musculoskeletal: Flexion and extension of lumbar spine somewhat guarded secondary to pain, deep tendon reflexes normal, strength in upper and lower extremities [5/5], slightly antalgic gait noted, positive Kemps test positive facet joint loading on the right side of the lumbar spine Neurological: speech clear, aviculturist equal, no gross sensory deficits Assessment:: Degenerative disc disease lumbar spine with facet arthropathy and spondylosis Plan:: We will set up an RFA of the right side at the L4-L5 L5-S1. He is been instructed to call the office if she has any issues prior to her next appointment she is failed other conservative measures including medications, anti-inflammatories and physical therapy. She is continuing a home stretching program. She is not on any anticoagulation therapy I will follow-up with her after her ablation and reassess her symptoms at that time. Dr. Cortes has reviewed this note and agrees with this plan of care. This note was dictated using voice recognition software and may contain errors or omissions Pain Management Hx Components *Have you ever received a pneumonia vaccine?: No *Have you received a flu vaccine this season?: No - *Social History *Occupational Status:: employed *Travel in the last 8 weeks: None
[2019-04-11 09:22] VITALS: BP 145/67; PULSE 92; RESP 18; O2SAT 98; BMI 47.1
--- NOTE | 2019-04-11 09:23 | P.CONS_ITS ---
[facility] Pain Management SOAP Note Subjective:: Patient is a pleasant 44-year-old white female who presents today for follow-up after medial branch block at L4-L5 L5-S1. Patient had 80% relief after her injection. Patient has had good relief in the past with medial branch blocks. Patient is interested in moving forward with an RFA of the right side she rates her pain today a 3 out of 10 ROS General: no recent weight change, no fever, no sleep disturbances Respiratory: no cough, no shortness of air, no recurring pulmonary infections Cardiovascular/Peripheral Vascular: No chest pain, No palpitations, no edema, no shortness of breath. Gastrointestinal: no incontinence, normal bowel movements reported Genitourinary: no incontinence Musculoskeletal: Back pain Psychiatric: normal mood/ affect Neurological: [denies weakness in extremities], [denies balance issues] Objective:: Physical Exam General: Alert and oriented x3, no acute distress, pleasant and cooperative, [on room air] Lungs: Resps E/U, Symmetrical chest expansion, \ Eyes: PERRL Musculoskeletal: Flexion and extension of lumbar spine somewhat guarded secondary to pain, deep tendon reflexes normal, strength in upper and lower extremities [5/5], slightly antalgic gait noted, positive Kemps test positive facet joint loading on the right side of the lumbar spine Neurological: speech clear, cook helper preserves equal, no gross sensory deficits Assessment:: Degenerative disc disease lumbar spine with facet arthropathy and spondylosis Plan:: We will set up an RFA of the right side at the L4-L5 L5-S1. He is been instructed to call the office if she has any issues prior to her next appointm ent she is failed other conservative measures including medications, anti- inflammatories and physical therapy. She is continuing a home stretching program. She is not on any anticoagulation therapy I will follow-up with her after her ablation and reassess her symptoms at that time. Dr. Cortes has reviewed this note and agrees with this plan of care. This note was dictated using voice recognition software and may contain errors or omissions Pain Management Hx Components *Have you ever received a pneumonia vaccine?: No *Have you received a flu vaccine this season?: No - *Social History *Occupational Status:: employed *Travel in the last 8 weeks: None
--- NOTE | 2019-05-08 15:43 | PC.NURSE ---
2 REFILLS FOR GABAPENTIN 600MG QID CALLED INTO [facility] PER PROVIDER ORDER
== END ==
PROVIDERS: PCP Internal Medicine Adolescent Medicine; Visit Provider Clinical Nurse Specialist Family Health
DX: M51.36 Other intervertebral disc degeneration, lumbar region (principal); M47.896 Other spondylosis, lumbar region; M54.06 Panniculitis affecting regions of neck and back, lumbar region
CPT/HCPCS: 99212

== ENCOUNTER → 2019-06-05 12:35 | Outpatient (POV) | payer BC, SELFPAY ==
[2019-06-05 12:46] VITALS: BP 154/93; PULSE 77; RESP 18; O2SAT 95; BMI 47.1
[2019-06-05 15:55] LABS: Amphetamine/Metha Screen,Urine Negative ng/mL (<1000); Barbiturates Screen,Urine Negative ng/mL (<200); Benzodiazepines Screen,Urine Negative ng/mL (<200); Cannabinoid Screen,Urine Negative ng/mL (<50); Cocaine Screen,Urine Negative ng/mL (<300); Methadone Screen,Urine Negative ng/mL (<300); Opiate Screen,Urine Negative ng/mL (<300); Phencyclidine Screen,Urine Negative ng/mL (<25)
--- NOTE | 2019-06-06 08:43 | HMH.PAINSOAP ---
[facility] Pain Management SOAP Note Subjective:: Patient is a pleasant 44-year-old white female who presents today for follow-up. Patient is waiting for gastric bypass surgery. Patient gets good relief with medial branch blocks. Patient rates her pain a 3 out of 10 today. She is also on Percocet. Patient would like to repeat her medial branch block. She gets 80% relief with her injections up to 3 months. Patient is also on Percocet 7.5 mg 1 p.o. 4 times daily and gabapentin 600 mg 1 p.o. 4 times daily. She is continuing to work. She is denying any side effects or medication. ROS General: no recent weight change, no fever, no sleep disturbances Respiratory: no cough, no shortness of air, no recurring pulmonary infections Cardiovascular/Peripheral Vascular: No chest pain, No palpitations, no edema, no shortness of breath. Gastrointestinal: no incontinence, normal bowel movements reported Genitourinary: no incontinence Musculoskeletal: Back pain Psychiatric: normal mood/ affect Neurological: [denies weakness in extremities], [denies balance issues] Objective:: Physical Exam General: Alert and oriented x3, no acute distress, pleasant and cooperative, [on room air] Lungs: Resps E/U, Symmetrical chest expansion, Eyes: PERRL Musculoskeletal: Flexion and extension of lumbar spine somewhat guarded secondary to pain, deep tendon reflexes normal, strength in upper and lower extremities [5/5], [abnormal gait noted] positive facet loading and Kemps test lumbar spine bilaterally Neurological: speech clear, senior ui ux designer equal, no gross sensory deficits Assessment:: Degenerative disc disease lumbar spine with lumbar spondylosis Plan:: We will refill her Percocet 7.5 mg 1 p.o. 4 times daily we will give her 1 month of medication. We will follow-up with her at her scheduled medial branch block at L4-L5 L5-S1 bilaterally. Given the efficacy in the past I believe this would be beneficial for her to help get her to her gastric weight loss surgery. I do believe losing weight will be a benefit in regards to her pain control. Patient is instructed to call the office if she has any issues prior to her next appointment. She is not on any anticoagulation therapy. She is continuing home stretching program. Patient has been prescribed a controlled substance after being counseled on the medication, medication safety, and possible side effects. BEN report has been obtained and reviewed prior to prescription and found to be appropriate. Opioid contract was reviewed and signed by the patient, and that they have agreed to all of the terms set forth by our compliance program. Dr. Cortes has reviewed this note and agrees with this plan of care. This note was dictated using voice recognition software and may contain errors or omissions [facility] History I have reviewed the patient's past medical history: Yes Medical History: Reports:: Diabetes Mellitus Type 2, Hypertension Denies:: Cancer, Diabetes Mellitus Type 1, Internal Pacemaker, MRSA, Seizures *Have you ever received a pneumonia vaccine?: No *Have you received a flu vaccine this season?: No Other Medical History: Denies: Blood Transfusion Reaction Other Surgeries: No: Pacemaker Amputation: No Fractures: No - *Social History Smoking Status: Never smoker Alcohol Intake: never *Occupational Status:: employed Housing: apartment Household Members: spouse *Travel in the last 8 weeks: None Family Hx:: Diabetes
--- NOTE | 2019-06-06 08:46 | P.CONS_ITS ---
[facility] Pain Management SOAP Note Subjective:: Patient is a pleasant 44-year-old white female who presents today for follow-up. Patient is waiting for gastric bypass surgery. Patient gets good relief with medial branch blocks. Patient rates her pain a 3 out of 10 today. She is also on Percocet. Patient would like to repeat her medial branch block. She gets 80% relief with her injections up to 3 months. Patient is also on Percocet 7.5 mg 1 p.o. 4 times daily and gabapentin 600 mg 1 p.o. 4 times daily. She is continuing to work. She is denying any side effects or medication. ROS General: no recent weight change, no fever, no sleep disturbances Respiratory: no cough, no shortness of air, no recurring pulmonary infections Cardiovascular/Peripheral Vascular: No chest pain, No palpitations, no edema, no shortness of breath. Gastrointestinal: no incontinence, normal bowel movements reported Genitourinary: no incontinence Musculoskeletal: Back pain Psychiatric: normal mood/ affect Neurological: [denies weakness in extremities], [denies balance issues] Objective:: Physical Exam General: Alert and oriented x3, no acute distress, pleasant and cooperative, [on room air] Lungs: Resps E/U, Symmetrical chest expansion, Eyes: PERRL Musculoskeletal: Flexion and extension of lumbar spine somewhat guarded secondary to pain, deep tendon reflexes normal, strength in upper and lower extremities [5/5], [abnormal gait noted] positive facet loading and Kemps test lumbar spine bilaterally Neurological: speech clear, group sales representative equal, no gross sensory deficits Assessment:: Degenerative disc disease lumbar spine with lumbar spondylosis Plan:: We will refill her Percocet 7.5 mg 1 p.o. 4 times daily we will give her 1 month of medication. We will follow-up with her at her scheduled medial branch block at L4-L5 L5-S1 bilaterally. Given the efficacy in the past I believe this would be beneficial for her to help get her to her gastric weight loss surgery. I do believe losing weight will be a benefit in regards to her pain control. Patient is instructed to call the office if she has any issues prior to her next appointment. She is not on any anticoagulation therapy. She is continuing home stretching program. Patient has been prescribed a controlled substance after being counseled on the medication, medication safety, and possible side effects. BEN report has been obtained and reviewed prior to prescription and found to be appropriate. Opioid contract was reviewed and signed by the patient, and that they have agreed to all of the terms set forth by our compliance program. Dr. Cortes has reviewed this note and agrees with this plan of care. This note was dictated using voice recognition software and may contain errors or omissions [facility] History I have reviewed the patient's past medical history: Yes Medical History: Reports:: Diabetes Mellitus Type 2, Hypertension Denies:: Cancer, Diabetes Mellitus Type 1, Internal Pacemaker, MRSA, Seizures *Have you ever received a pneumonia vaccine?: No *Have you received a flu vaccine this season?: No Other Medical History: Denies: Blood Transfusion Reaction Other Surgeries: No: Pacemaker Amputation: No Fractures: No - *Social History Smoking Status: Never smoker Alcohol Intake: never *Occupational Status:: employed Housing: apartment Household Members: spouse *Travel in the last 8 weeks: None Family Hx:: Diabetes
[2019-06-12 00:18] LABS: Opiates Negative (Cutoff=100)
== END ==
PROVIDERS: PCP Family Medicine; Visit Provider Clinical Nurse Specialist Family Health
DX: M51.36 Other intervertebral disc degeneration, lumbar region (principal); M47.816 Spondylosis without myelopathy or radiculopathy, lumbar region
CPT/HCPCS: 80305; 80361; 80365; 99212; G0480

== ENCOUNTER → 2019-08-21 09:26 | Outpatient (POV) | payer BC, SELFPAY ==
[2019-08-21 09:58] VITALS: BP 129/72; PULSE 76; RESP 18; O2SAT 99; BMI 42.3
--- NOTE | 2019-08-21 10:27 | P.CONS_ITS ---
[facility] Pain Management SOAP Note Subjective:: Patient is a pleasant 44-year-old white female who presents today for follow-up. Patient has had gastric bypass surgery and has lost 41 pounds in total. Overall doing extremely well rating her pain a 3 out of 10. She is on Percocet 7.5 mg 1 p.o. 4 times daily and gabapentin 600 mg 1 p.o. 4 times daily. Patient denies side effects to her medication. Ben reviewed and appropriate. Ben #[id number]. ROS General: no recent weight change, no fever, no sleep disturbances Respiratory: no cough, no shortness of air, no recurring pulmonary infections Cardiovascular/Peripheral Vascular: No chest pain, No palpitations, no edema, no shortness of breath. Gastrointestinal: no new onset incontinence, normal bowel movements reported Genitourinary: no new onset incontinence Musculoskeletal: Back pain Psychiatric: normal mood/ affect Neurological: [denies new onset weakness in extremities], [denies new onset balance issues] Objective:: Physical Exam General: Alert and oriented x3, no acute distress, pleasant and cooperative, [on room air] Lungs: Resps E/U, Symmetrical chest expansion, Eyes: PERRL Musculoskeletal: Flexion and extension of lumbar spine somewhat guarded secondary to pain, deep tendon reflexes normal, strength in upper and lower extremities [5/5], [abnormal gait noted] Neurological: speech clear, elastic attacher overlock equal, no gross sensory deficits Assessment:: Degenerative disc disease lumbar spine with lumbar spondylosis Plan:: We will refill her Percocet 7.5 mg 1 p.o. 4 times daily and give her 2 months worth of medication. We will follow-up with her in 2 months reassess her sympto ms at that time she is been instructed to call the office if she has any issues prior to her next appointment. Patient has been prescribed a controlled substance after being counseled on the medication, medication safety, and possible side effects. BEN report has been obtained and reviewed prior to prescription and found to be appropriate. Opioid contract was reviewed and signed by the patient, and that they have agreed to all of the terms set forth by our compliance program. Dr. Cortes has reviewed this note and agrees with this plan of care. This note was dictated using voice recognition software and may contain errors or omissions [facility] History I have reviewed the patient's past medical history: Yes Medical History: Reports:: Diabetes Mellitus Type 2, Hypertension Denies:: Cancer, Diabetes Mellitus Type 1, Internal Pacemaker, MRSA, Seizures *Have you ever received a pneumonia vaccine?: Yes *Have you received a flu vaccine this season?: Yes Other Medical History: Denies: Blood Transfusion Reaction Other Surgeries: No: Pacemaker Amputation: No Fractures: No - *Social History Smoking Status: Never smoker Alcohol Intake: never *Occupational Status:: other Housing: apartment Household Members: spouse *Travel in the last 8 weeks: None Family Hx:: Diabetes
[2019-08-21 15:16] LABS: Amphetamine/Metha Screen,Urine Negative ng/mL (<1000); Barbiturates Screen,Urine Negative ng/mL (<200); Benzodiazepines Screen,Urine Negative ng/mL (<200); Cannabinoid Screen,Urine Negative ng/mL (<50); Cocaine Screen,Urine Negative ng/mL (<300); Methadone Screen,Urine Negative ng/mL (<300); Opiate Screen,Urine Negative ng/mL (<300); Phencyclidine Screen,Urine Negative ng/mL (<25)
[2019-08-29 07:16] LABS: Opiates Negative (Cutoff=100)
== END ==
PROVIDERS: PCP Family Medicine; Visit Provider Clinical Nurse Specialist Family Health
DX: M51.36 Other intervertebral disc degeneration, lumbar region (principal); M47.816 Spondylosis without myelopathy or radiculopathy, lumbar region; Z98.84 Bariatric surgery status; Z79.899 Other long term (current) drug therapy
CPT/HCPCS: 80305; 80361; 80365; 99212; G0480

== ENCOUNTER → 2019-10-16 13:39 | Outpatient (POV) | payer BC, SELFPAY ==
[2019-10-16 13:54] VITALS: BP 133/74; PULSE 57; RESP 18; O2SAT 99; BMI 39.4
--- NOTE | 2019-10-16 13:55 | HMH.PAINSOAP ---
[facility] Pain Management SOAP Note Subjective:: Patient is a 44-year-old white female who presents today for medication refills and follow-up. She is being treated for low back pain with lumbar radiculopathy symptoms, as well as lumbar spondylosis. Patient rates her pain a 4 out of 10 today. She is currently managed with Percocet 7.5 mg 1 tablet p.o. 4 times daily and gabapentin 600 mg 1 tablet p.o. 4 times daily. She denies any side effects to her medications. Patient says she is having some increased low back pain, however. She says the pain is also radiating into her bilateral lower extremities. She says it is worse with extension at the waist. She underwent gastric bypass surgery in June 2019. Patient has lost 65 pounds today. She is continuing with a home stretching program and anti-inflammatories. Patient's Amadou #[id number] has been reviewed and is appropriate. Her urine drug screens are appropriate. Her morphine equivalent is 45. Review of Systems General: No recent weight changes, no fever, no sleep disturbances Respiratory: No cough, no shortness of air, no recurring pulmonary infections Cardiovascular/peripheral vascular: No chest pain, no palpitations, no edema, no shortness of breath Gastrointestinal: No new onset incontinence, normal bowel movements reported Genitourinary: No new onset incontinence Musculoskeletal: Low back pain Psychiatric: Normal mood/affect Neurological: [Denies weakness in extremities], [denies balance issues] Objective:: Physical exam General: Alert and oriented x3, no acute distress, pleasant and cooperative, [on room air] Lungs: Respirations even and unlabored, symmetrical chest expansion Eyes: PERRL Musculoskeletal: Flexion and extension of lumbar spine somewhat guarded secondary to pain, deep tendon reflexes normal, strength in upper and lower extremities [5/5], [abnormal gait noted], positive Kemps test Neurological: Speech clear, meringuer equal, no gross sensory deficit Assessment:: Degenerative disc disease lumbar spine with lumbar radiculopathy symptoms, lumbar spondylosis, facet arthropathy Plan:: We will schedule the patient for medial branch block/facet joint injections at L4-L5 and L5-S1 bilaterally. She is undergone these injections in the past and has gotten approximately 80 to 90% relief following the injections for greater than 2 to 3 months. We will see her back in the clinic after her injections to reassess her symptoms. We will refill her gabapentin 600 mg 1 tablet p.o. 4 times daily and Percocet 7.5 mg 1 tablet p.o. 4 times daily. We will give HER-2 months worth of medication and see her back in the interim to oyster picker her third month. The patient is not on any anticoagulation therapy. She will continue with her anti-inflammatories and home stretching program. Patient's been instructed to contact clinic if she has any concerns before her next appointment. Dr. Cortes has reviewed this note and agrees with this plan of care. This note was dictated using voice recognition software and make contain errors or omissions. [facility] History I have reviewed the patient's past medical history: Yes Medical History: Reports:: Diabetes Mellitus Type 2, Hypertension Denies:: Cancer, Diabetes Mellitus Type 1, Internal Pacemaker, MRSA, Seizures *Have you ever received a pneumonia vaccine?: Yes *Have you received a flu vaccine this season?: Yes Other Medical History: Denies: Blood Transfusion Reaction Other Surgeries: No: Pacemaker Amputation: No Fractures: No - *Social History Smoking Status: Never smoker Alcohol Intake: never *Occupational Status:: other Housing: apartment Household Members: spouse *Travel in the last 8 weeks: None Family Hx:: Diabetes
[2019-10-16 19:12] LABS: Amphetamine/Metha Screen,Urine Negative ng/mL (<1000); Barbiturates Screen,Urine Negative ng/mL (<200); Benzodiazepines Screen,Urine Negative ng/mL (<200); Cannabinoid Screen,Urine Negative ng/mL (<50); Cocaine Screen,Urine Negative ng/mL (<300); Methadone Screen,Urine Negative ng/mL (<300); Opiate Screen,Urine Negative ng/mL (<300); Phencyclidine Screen,Urine Negative ng/mL (<25)
[2019-10-22 13:15] LABS: Oxycodone (GC/MS) 2313 ng/mL (Cutoff=100)
[2019-10-22 17:35] LABS: Opiates Negative (Cutoff=100); Oxymorphone (GC/MS) 418 ng/mL (Cutoff=100)
== END ==
PROVIDERS: Clinical Nurse Specialist Family Health; PCP Family Medicine; Visit Provider Clinical Nurse Specialist Family Health
DX: M51.16 Intervertebral disc disorders with radiculopathy, lumbar region (principal); M47.816 Spondylosis without myelopathy or radiculopathy, lumbar region; M54.06 Panniculitis affecting regions of neck and back, lumbar region; Z79.899 Other long term (current) drug therapy
CPT/HCPCS: 80305; 80361; 80365; 99212; G0480

== ENCOUNTER → 2019-12-25 08:09 | Outpatient (POV) | payer BC, SELFPAY ==
[2019-12-25 08:34] VITALS: BP 134/85; PULSE 58; RESP 18; TEMP 36.6; BMI 35.7
--- NOTE | 2019-12-25 08:56 | HMH.PAINSOAP ---
[facility] Pain Management SOAP Note Subjective:: Patient is a pleasant 44-year-old white female who we are treating for low back pain. Patient is following up after medial branch block. She had no relief with this. Patient's symptomology has changed significantly since her last visit. She is having right leg pain along with odd sensations including water running down her leg and it being cold. Patient and I discussed an epidural injection I do believe this would be beneficial. Patient has recently lost 90 pounds. Patient and I discussed if this is not beneficial we will move forward with a new MRI. ROS General: no recent weight change, no fever, no sleep disturbances Respiratory: no cough, no shortness of air, no recurring pulmonary infections Cardiovascular/Peripheral Vascular: No chest pain, No palpitations, no edema, no shortness of breath. Gastrointestinal: no new onset incontinence, normal bowel movements reported Genitourinary: no new onset incontinence Musculoskeletal: Back pain, leg pain Psychiatric: normal mood/ affect Neurological: [denies new onset weakness in extremities], [denies new onset balance issues] Objective:: Physical Exam General: Alert and oriented x3, no acute distress, pleasant and cooperative, [on room air] Lungs: Resps E/U, Symmetrical chest expansion, Eyes: PERRL Musculoskeletal: Flexion and extension of lumbar spine somewhat guarded secondary to pain, deep tendon reflexes normal, strength in upper and lower extremities [5/5], antalgic gait noted Neurological: speech clear, wave guide assembler equal, no gross sensory deficits Assessment:: Degenerative disc disease lumbar spine lumbar radiculopathy Plan:: We will start her on Elavil 25 mg at nighttime. We will also set her up for an L4-L5 lumbar epidural steroid injection. I do believe given her symptomology this would be beneficial. If it is not we will move forward with an MRI. She is not on any anticoagulation therapy. We specifically discussed risk factors for Covid-19 including age, heart or lung disease, diabetes, immunosuppression and travel. We also discussed that NSAIDs may worsen Covid-19 infection symptoms and that they should not be used to treat Covid-19 symptoms. Patient was also informed that corticosteroids in any form oral or injectable will decrease immune response and may increase risk of Covid-[address] Cortes has reviewed this patient's chart and this note and agrees with plan of care. Patient has been instructed to call the office if they have any issues prior to the next appointment. Dr. Cortes has reviewed this note and agrees with this plan of care. This note was dictated using voice recognition software and may contain errors or omissions [facility] History I have reviewed the patient's past medical history: Yes Medical History: Reports:: Hypertension Denies:: Cancer, Diabetes Mellitus Type 1, Diabetes Mellitus Type 2, Internal Pacemaker, MRSA, Seizures *Have you ever received a pneumonia vaccine?: Yes *Have you received a flu vaccine this season?: Yes Other Medical History: Denies: Blood Transfusion Reaction Other Surgeries: No: Pacemaker Amputation: No Fractures: No - *Social History Smoking Status: Never smoker Alcohol Intake: never *Occupational Status:: other Housing: apartment Household Members: spouse *Travel in the last 8 weeks: None Family Hx:: Diabetes
== END ==
PROVIDERS: PCP Family Medicine; Visit Provider Clinical Nurse Specialist Family Health
DX: M51.16 Intervertebral disc disorders with radiculopathy, lumbar region (principal)
CPT/HCPCS: 99202

== ENCOUNTER → 2020-01-01 08:47 | Outpatient (CLI) | payer BC, SELFPAY ==
[2020-01-02 08:57] LABS: Covid-19 Nasal PCR Sendout Lex NOT DETECTED
--- NOTE | 2020-01-02 09:57 | PC.NURSE ---
left message with patient to call back for results of covid results. JO ANN Sr notified in pain management as well.
== END ==
PROVIDERS: Visit Provider Anesthesiology
DX: Z03.818 Encounter for observation for suspected exposure to other biological agents ruled out (principal)
CPT/HCPCS: U0003

== ENCOUNTER 2020-01-03 08:18 | Day surgery (SDC) | payer BC, SELFPAY ==
[2020-01-03 08:52] VITALS: BP 142/75; PULSE 58; RESP 18; O2SAT 98; BMI 35.7
[2020-01-03 09:38] VITALS: BP 135/85; PULSE 85; RESP 18; O2SAT 98
[2020-01-03 09:40] VITALS: BP 142/85; PULSE 85; RESP 18; O2SAT 98
[2020-01-03 09:50] VITALS: BP 138/78; PULSE 60; RESP 20; O2SAT 99
--- NOTE | 2020-01-03 10:42 | P.PCN_ITS ---
- Procedure Date: 01/03/20 Time: 10:42 Anesthesiologist:: Tejas Cortes MD Complications:: None Pre-procedure Diagnosis:: Degenerative disc disease of lumbar spine with lumbar radiculopathy symptoms Post-procedure Diagnosis:: Same Indications for Procedure:: This patient is a pleasant 44-year-old white female who we are treating for low back pain with lumbar radicular symptoms. She previously had medial branch blocks without any relief of her symptomology. Most of her pain is in the low back rating down her right leg. We will do an epidural steroid injection today to see if this will help with her symptomology. Procedure Details:: Lumbar epidural steroid injection under fluoroscopy Informed consent was obtained and the risk and benefits of the procedure was explained to the patient. The patient was taken to the procedure room. The patient was placed prone on the procedure table. The patient was prepped and draped in sterile fashion. C-arm fluoroscopy was used to view the lumbar spine. Skin and subcutaneous tissues were anesthetized using lidocaine. I placed an 18-gauge epidural needle and advanced into the L4-L5 interspace using fluoros copic guidance and [id number] to air. After confirmation of needle placement in the epidural space with dye I injected 2 mL of lidocaine 1.5% with Depo-Medrol 80 mg. Patient tolerated the procedure well with no complications. Plan and Disposition:: We will follow-up with her in 2 weeks. Will reevaluate her symptoms at that time.
== END 2020-01-03 09:50 | disposition home or self-care (01) ==
PROVIDERS: PCP Family Medicine; Visit Provider Anesthesiology
DX: M51.16 Intervertebral disc disorders with radiculopathy, lumbar region (principal); E66.9 Obesity, unspecified; I10 Essential (primary) hypertension; Z68.35 Body mass index [BMI] 35.0-35.9, adult
CPT/HCPCS: 62323; J1040; Q9966

== ENCOUNTER → 2020-01-15 10:15 | Outpatient (POV) | payer BC, SELFPAY ==
[2020-01-15 10:24] VITALS: BP 131/74; PULSE 58; RESP 18; O2SAT 98; BMI 35.6
--- NOTE | 2020-01-15 10:38 | HMH.PAINSOAP ---
[facility] Pain Management SOAP Note Subjective:: Patient is a pleasant 44-year-old white female who presents today for follow-up after lumbar epidural steroid injection. She got 90% relief of her symptoms. She rates her pain a 0 out of 10 today. She is medically managed also with Percocet she does take this as needed when she goes to work. Patient is recently walked lost a significant amount of weight. Overall doing well ROS General: no recent weight change, no fever, no sleep disturbances Respiratory: no cough, no shortness of air, no recurring pulmonary infections Cardiovascular/Peripheral Vascular: No chest pain, No palpitations, no edema, no shortness of breath. Gastrointestinal: no new onset incontinence, normal bowel movements reported Genitourinary: no new onset incontinence Musculoskeletal: Back pain at times Psychiatric: normal mood/ affect, [denies depression], [denies anxiety] Neurological: [denies new onset weakness in extremities], [denies new onset balance issues] Objective:: Physical Exam General: Alert and oriented x3, no acute distress, pleasant and cooperative, [on room air] Lungs: Resps E/U, Symmetrical chest expansion, Eyes: PERRL Musculoskeletal: Flexion and extension of lumbar spine somewhat guarded secondary to pain, deep tendon reflexes normal, strength in upper and lower extremities [5/5], [normal gait noted] Neurological: speech clear, family and consumer science professor equal, no gross sensory deficits Assessment:: Degenerative disease lumbar spine with lumbar radiculopathy symptoms Plan:: We will see the patient back in 2 months reassess her symptoms at that time she is been instructed to call the office if she has any issues prior to her next appointment. Dr. Cortes has reviewed this note and agrees with this plan of care. This note was dictated using voice recognition software and may contain errors or omissions [facility] History I have reviewed the patient's past medical history: Yes Medical History: Reports:: Hypertension Denies:: Cancer, Diabetes Mellitus Type 1, Diabetes Mellitus Type 2, Internal Pacemaker, MRSA, Seizures *Have you ever received a pneumonia vaccine?: Yes *Have you received a flu vaccine this season?: Yes Other Medical History: Denies: Blood Transfusion Reaction Other Surgeries: No: Pacemaker Amputation: No Fractures: No - *Social History Smoking Status: Never smoker Alcohol Intake: never *Occupational Status:: other Housing: house Household Members: other *Travel in the last 8 weeks: None Family Hx:: Unable to obtain
== END ==
PROVIDERS: PCP Family Medicine; Visit Provider Clinical Nurse Specialist Family Health
DX: M51.16 Intervertebral disc disorders with radiculopathy, lumbar region
CPT/HCPCS: 99212

== ENCOUNTER → 2020-04-22 08:48 | Outpatient (POV) | payer BC, SELFPAY ==
[2020-04-22 09:00] VITALS: BP 128/75; PULSE 55; RESP 18; TEMP 36.6; O2SAT 98; BMI 32.4
--- NOTE | 2020-04-22 09:05 | HMH.PAINSOAP ---
[facility] Pain Management SOAP Note Subjective:: Patient is a 45-year-old white female who presents today for follow-up. Patient is doing well she is recently lost to 120 pounds status post gastric bypass. She rates her pain today 3 out of 10. She is medically managed with Percocet 7.5 mg 1 p.o. 4 times daily and gabapentin 600 mg 1 p.o. 4 times daily. She denies side effects from medication. Ben #[id number] reviewed and appropriate. Drug screens have been appropriate. ROS General: no recent weight change, no fever, no sleep disturbances Respiratory: no cough, no shortness of air, no recurring pulmonary infections Cardiovascular/Peripheral Vascular: No chest pain, No palpitations, no edema, no shortness of breath. Gastrointestinal: no new onset incontinence, normal bowel movements reported Genitourinary: no new onset incontinence Musculoskeletal: Back pain, leg pain Psychiatric: normal mood/ affect Neurological: [denies new onset weakness in extremities], [denies new onset balance issues] Objective:: Physical Exam General: Alert and oriented x3, no acute distress, pleasant and cooperative, [on room air] Lungs: Resps E/U, Symmetrical chest expansion, Eyes: PERRL Musculoskeletal: Flexion and extension of lumbar spine somewhat guarded secondary to pain, deep tendon reflexes normal, strength in upper and lower extremities [5/5], antalgic gait noted Neurological: speech clear, learning specialist equal, no gross sensory deficits Assessment:: Degenerative disc disease lumbar spine lumbar radiculopathy Plan:: We will continue her Percocet 7.5 mg 1 p.o. 4 times daily and gabapentin 600 mg 1 p.o. 4 times daily. We will see the patient back in 3 months reassess her symptoms at that time she has been instructed to call the office if she has any issues prior to her next appointment. Patient has been prescribed a controlled substance after being counseled on the medication, medication safety, and possible side effects. BEN report has been obtained and reviewed prior to prescription and found to be appropriate. Opioid contract was reviewed and signed by the patient, and that they have agreed to all of the terms set forth by our compliance program.Dr. Cortes has reviewed this note and agrees with this plan of care. This note was dictated using voice recognition software and may contain errors or omissions [facility] History I have reviewed the patient's past medical history: Yes Medical History: Reports:: Hypertension Denies:: Cancer, Diabetes Mellitus Type 1, Diabetes Mellitus Type 2, Internal Pacemaker, MRSA, Seizures *Have you ever received a pneumonia vaccine?: No *Have you received a flu vaccine this season?: Yes Other Medical History: Denies: Blood Transfusion Reaction Other Surgeries: No: Pacemaker Amputation: No Fractures: No - *Social History Smoking Status: Never smoker Alcohol Intake: never *Occupational Status:: other Housing: house Household Members: other *Travel in the last 8 weeks: None Family Hx:: Unable to obtain
== END ==
PROVIDERS: PCP Family Medicine; Visit Provider Clinical Nurse Specialist Family Health
DX: M51.16 Intervertebral disc disorders with radiculopathy, lumbar region (principal)
CPT/HCPCS: 99212

== ENCOUNTER → 2020-07-22 12:51 | Outpatient (POV) | payer BC, SELFPAY ==
--- NOTE | 2020-07-22 13:12 | P.CONS_ITS ---
[facility] Pain Management SOAP Note Subjective:: Patient is a pleasant 45-year-old white female who presents today for follow-up. She is doing well she is recently lost over 120 pounds. Patient rates her pain today a 3 out of 10. She is medically managed with Percocet 7.5 mg 1 p.o. 4 times daily and gabapentin 600 mg 1 p.o. 4 times daily. She denies side effects from medication. Ben #[id number] reviewed and appropriate. Drug screens have been appropriate. ROS General: no recent weight change, no fever, no sleep disturbances Respiratory: no cough, no shortness of air, no recurring pulmonary infections Cardiovascular/Peripheral Vascular: No chest pain, No palpitations, no edema, no shortness of breath. Gastrointestinal: no new onset incontinence, normal bowel movements reported Genitourinary: no new onset incontinence Musculoskeletal: Back pain, leg pain Psychiatric: normal mood/ affect Neurological: [denies new onset weakness in extremities], [denies new onset balance issues] Objective:: Physical Exam General: Alert and oriented x3, no acute distress, pleasant and cooperative, [on room air] Lungs: Resps E/U, Symmetrical chest expansion, Eyes: PERRL Musculoskeletal: Flexion and extension of lumbar spine somewhat guarded secondary to pain, deep tendon reflexes normal, strength in upper and lower extremities [5/5], antalgic gait noted Neurological: speech clear, statuary painter equal, no gross sensory deficits Assessment:: Degenerative disc disease lumbar spine lumbar radiculopathy Plan:: We will continue the patient's Percocet 7.5 mg 1 p.o. 4 times daily and gabapentin 600 mg 1 p.o. 4 times daily. We will see her back in 3 months reassess her symptoms at that time she can cotton picker prescriptions in the interim. She is been instructed to call the office if she has any issues prior to her next appointment. Dr. Cortes has reviewed this note and agrees with this plan of care. This note was dictated using voice recognition software and may contain errors or omissions Patient has been prescribed a controlled substance after being counseled on the medication, medication safety, and possible side effects. BEN report has been obtained and reviewed prior to prescription and found to be appropriate. Opioid contract was reviewed and signed by the patient, and that they have agreed to all of the terms set forth by our compliance program. [facility] History I have reviewed the patient's past medical history: Yes Medical History: Reports:: Hypertension Denies:: Cancer, Diabetes Mellitus Type 1, Diabetes Mellitus Type 2, Internal Pacemaker, MRSA, Seizures *Have you ever received a pneumonia vaccine?: No *Have you received a flu vaccine this season?: Yes Other Medical History: Denies: Blood Transfusion Reaction Other Surgeries: No: Pacemaker Amputation: No Fractures: No - *Social History Smoking Status: Never smoker Alcohol Intake: never *Occupational Status:: other Housing: house Household Members: other *Travel in the last 8 weeks: None Family Hx:: Unable to obtain
[2020-07-22 13:16] VITALS: BP 125/74; PULSE 74; RESP 18; TEMP 36.8; O2SAT 98; BMI 31.9
== END ==
PROVIDERS: Visit Provider Clinical Nurse Specialist Family Health
DX: M51.16 Intervertebral disc disorders with radiculopathy, lumbar region (principal)
CPT/HCPCS: 99212

== ENCOUNTER → 2020-10-21 12:56 | Outpatient (POV) | payer BC, SELFPAY ==
[2020-10-21 13:18] VITALS: BP 132/71; PULSE 72; RESP 20; TEMP 36.6; O2SAT 100; BMI 32.6
--- NOTE | 2020-10-21 13:20 | P.CONS_ITS ---
[facility] Pain Management SOAP Note Subjective:: Patient is a pleasant 45-year-old white female who presents today for follow-up. Patient is doing well. She is continuing to lose weight. She rates her pain a 3 out of 10. She is medically managed with Percocet 7.5 mg 1 p.o. 4 times daily and gabapentin 600 mg 1 p.o. 4 times daily. She denies side effects to her medication. Patient's Ben #[id number] reviewed and appropriate. Drug screens have been appropriate. ROS General: no recent weight change, no fever, no sleep disturbances Respiratory: no cough, no shortness of air, no recurring pulmonary infections Cardiovascular/Peripheral Vascular: No chest pain, No palpitations, no edema, no shortness of breath. Gastrointestinal: no new onset incontinence, normal bowel movements reported Genitourinary: no new onset incontinence Musculoskeletal: Leg pain Psychiatric: normal mood/ affect Neurological: [denies new onset weakness in extremities], [denies new onset balance issues] Objective:: Physical Exam General: Alert and oriented x3, no acute distress, pleasant and cooperative, [on room air] Lungs: Resps E/U, Symmetrical chest expansion, Eyes: PERRL Musculoskeletal: Flexion and extension of lumbar spine somewhat guarded secondary to pain, deep tendon reflexes normal, strength in upper and lower extremities [5/5], slightly antalgic gait noted Neurological: speech clear, manager fleet equal, no gross sensory deficits Assessment:: Degenerative disc disease lumbar spine lumbar radiculopathy, back pain Plan:: We will continue her Percocet 7.5 mg 1 p.o. 4 times daily, gabapentin 600 mg 1 p.o. 4 times daily. We will see her back in 3 months reassess her symptoms at that time she has been instructed to call the office if she has any issues prior to her next appointment. Dr. Cortes has reviewed this note and agrees with this plan of care. This note was dictated using voice recognition software and may contain errors or omissions Patient has been prescribed a controlled substance after being counseled on the medication, medication safety, and possible side effects. BEN report has been obtained and reviewed prior to prescription and found to be appropriate. Opioid contract was reviewed and signed by the patient, and that they have agreed to all of the terms set forth by our compliance program. [facility] History I have reviewed the patient's past medical history: Yes Medical History: Reports:: Hypertension Denies:: Cancer, Diabetes Mellitus Type 1, Diabetes Mellitus Type 2, Internal Pacemaker, MRSA, Seizures *Have you ever received a pneumonia vaccine?: Yes *Have you received a flu vaccine this season?: Yes Other Medical History: Denies: Blood Transfusion Reaction Other Surgeries: No: Pacemaker Amputation: No Fractures: No - *Social History Smoking Status: Never smoker Alcohol Intake: never *Occupational Status:: other Housing: house Household Members: other *Travel in the last 8 weeks: None Family Hx:: Unable to obtain
== END ==
PROVIDERS: Visit Provider Clinical Nurse Specialist Family Health
DX: M51.16 Intervertebral disc disorders with radiculopathy, lumbar region (principal)
CPT/HCPCS: 99212; G0463

== ENCOUNTER → 2021-01-23 15:05 | Outpatient (POV) | payer BC, SELFPAY ==
[2021-01-23 15:19] VITALS: BP 158/94; PULSE 75; RESP 18; O2SAT 98; BMI 32.6
--- NOTE | 2021-01-23 16:12 | HMH.PAINSOAP ---
[facility] Pain Management SOAP Note Subjective:: Patient is a 45-year-old white female who presents today for medication refills and for follow-up. She has been treated for low back pain with radiation into her right leg and right foot. Pain is a 2 out of 10 today. She says she is doing well overall with her medication regimen. She gets about 80% relief with her medicines. She says her pain does worsen when she is at work. She is managed with Percocet 7.5 mg 1 tablet p.o. 4 times daily and gabapentin 600 mg 1 tablet p.o. 4 times daily. She denies any side effects to the medication. The patient's Amadou #[id number] has been reviewed and is appropriate. Morphine equivalent is 45. Drug screen is appropriate. Review of Systems General: No recent weight changes, no fever, no sleep disturbances Respiratory: No cough, no shortness of air, no recurring pulmonary infections Cardiovascular/peripheral vascular: No chest pain, no palpitations, no edema, no shortness of breath Gastrointestinal: No new onset incontinence, normal bowel movements reported Genitourinary: No new onset incontinence Musculoskeletal: Low back pain with radiation into right leg and right foot Psychiatric: Normal mood/affect Neurological: [Denies weakness in extremities], [denies balance issues] Objective:: Physical exam General: Alert and oriented x3, no acute distress, pleasant and cooperative, [on room air] Lungs: Respirations even and unlabored, symmetrical chest expansion Eyes: PERRL Musculoskeletal: Flexion and extension of lumbar spine somewhat guarded secondary to pain, deep tendon reflexes normal, strength in upper and lower extremities [5/5], [abnormal gait noted] Neurological: 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 4 times daily. We will also give the patient her gabapentin 600 mg 1 tablet p.o. 4 times daily. We will give her 2 months of medication and she can contact the clinic in the interim third month. We will see her back in the clinic in 3 months. Patient has been instructed on the risks and side effects of the medication. She has been instructed to discuss drug?drug interactions with her current medications with her pharmacist as well as her primary care provider. Dr. Cortes has reviewed this note and agrees with this plan of care. This note was dictated using voice recognition software and make contain errors or omissions. [facility] History I have reviewed the patient's past medical history: Yes Medical History: Reports:: Hypertension Denies:: Cancer, Diabetes Mellitus Type 1, Diabetes Mellitus Type 2, Internal Pacemaker, MRSA, Seizures *Have you ever received a pneumonia vaccine?: Yes *Have you received a flu vaccine this season?: Yes Other Medical History: Denies: Blood Transfusion Reaction Other Surgeries: No: Pacemaker Amputation: No Fractures: No - *Social History Smoking Status: Never smoker Alcohol Intake: never *Occupational Status:: employed Housing: house Household Members: other *Travel in the last 8 weeks: None Family Hx:: Unable to obtain
== END ==
PROVIDERS: Visit Provider Clinical Nurse Specialist Family Health
DX: M51.16 Intervertebral disc disorders with radiculopathy, lumbar region (principal)
CPT/HCPCS: 99212; G0463

== ENCOUNTER 2025-01-11 19:00 | Outpatient (CLI) | payer BC, SELFPAY | END 2025-01-11 23:59 | disposition home or self-care (01) | LOC: LAB.DROPOF 01-12 11:24 | PROVIDERS: PCP Nurse Practitioner; Visit Provider Nurse Practitioner | DX: R39.15 Urgency of urination (principal) | CPT/HCPCS: 87086 ==

== ENCOUNTER 2025-02-12 21:00 | Emergency (ER) | payer BC, SELFPAY ==
[2025-02-12] VITALS (7 sets, daily range): BP systolic 127–159; BP diastolic 69–99; PULSE 60–86; RESP 12–26; TEMP 36.9; O2SAT 96–100; BMI 34.9
--- NOTE | 2025-02-12 21:04 | CT_ITS ---
PROCEDURE INFORMATION: Exam: CT Abdomen And Pelvis With Contrast Exam date and time: 02/12/2025 9:52 PM Age: 49 years old Clinical indication: Abdominal pain; Additional info: Severe suprapubic pain TECHNIQUE: Imaging protocol: Computed tomography of the abdomen and pelvis with contrast. Radiation optimization: All CT scans at this facility use at least one of these dose optimization techniques: automated exposure control; mA and/or kV adjustment per patient size (includes targeted exams where dose is matched to clinical indication); or iterative reconstruction. Contrast material: ISOVUE; Contrast volume: 75 ml; Contrast route: IV; COMPARISON: CR CXR2V XR chest 2V 10/27/2018 2:38 PM FINDINGS: Liver: Normal. No mass. Gallbladder and biliary ducts: There are surgical clips within the gallbladder fossa. Pancreas: Normal. No ductal dilation. Spleen: Normal. No splenomegaly. Adrenal glands: Normal. No mass. Kidneys and ureters: Mild inflammatory changes of the proximal right ureter may represent ascending infection. Nonobstructive right nephrolithiasis define by multiple right renal calcific densities the largest measuring up to 10.7 mm at the inferior pole the right kidney. 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 Appendix: No evidence of appendicitis. Intraperitoneal space: Unremarkable. No free air. No significant fluid collection. Vasculature: Unremarkable. No abdominal aortic aneurysm. Lymph nodes: Unremarkable. No enlarged lymph nodes. Urinary bladder: Bladder is decompressed limiting its evaluation. Inflammatory stranding of the anterior urinary bladder wall favors cystitis. Reproductive: Unremarkable as visualized. Bones/joints: Bilateral pars defects of L4 with grade 1 anterolisthesis of L4 over L5. Soft tissues: Normal. IMPRESSION: 1. Mild inflammatory changes of the proximal right ureter may represent ascending infection. 2. Inflammatory stranding of the anterior urinary bladder wall favors cystitis.
--- NOTE | 2025-02-12 21:09 | PC.NURSE ---
Respiratory contacted and made aware of VBG that was sent to the lab
[2025-02-12] MEDS: HYDROMORPHONE 2MG/ML SYRINGE 0.5 MG IV (21:10)
[2025-02-12] MEDS: KETOROLAC 30MG/ML VIAL 15 MG IV (21:10)
[2025-02-12] MEDS: ONDANSETRON 4MG/2ML VIAL 4 MG IV (21:10)
--- OUTSIDE RECORDS SUMMARY | 2025-02-12 21:10 | XMS_ITS | Clinical Summary ---
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 01/30/2021 Active ibuprofen 600 MG tablet TAKE 1 TABLET EVERY 6 HOURS WITH FOOD NEEDED. 01/01/2021 Active Docusate Calcium (SM STOOL SOFTENER PO) TAKE 1 TABLET DAILY DIRECTED. 01/01/2021 Active Vit-Fe Fumarate-FA ( VITAMINS PO) take 1 tablet by mouth once daily 08/09/2020 Active Family History Medical History Relation Name Comments Coronary artery disease Mother Diabetes type II Mother Relation Name Status Comments Mother Social History Tobacco Use Types Packs/Day Years Used Date Smoking Tobacco: Never Smokeless Tobacco: Never Alcohol Use Standard Drinks/Week Comments No 0 (1 standard drink = 0.6 oz pur e alcohol) Comments Unknown Sex and Gender Information Value Date Recorded Sex Assigned at Not on file Legal Sex Female 8:03 PM EDT Gender Identity Not on file Sexual Orientation Not on file Last Filed Vital Signs Vital Sign Reading Time Taken Comments Blood Pressure 149/88 01/30/2021 10:29 AM EDT Pulse - - Temperature - - Respiratory Rate - - Oxygen Saturation - - Inhaled Oxygen Concentration - - Weight 102 kg (225 lb 8.5 oz) 01/30/2021 10:29 A M EDT Height 172.7 cm (5' 8 ) 01/30/2021 10:29 AM EDT Body Mass Index 34.29 01/30/2021 10:29 AM EDT Plan of Treatment Health Maintenance Due Date Last Done Comments [facility]-Depression Screening 1976 [facility]-Infant/Child/Adol SDOH Screenings 1975 [facility]- SDOH Screenings 02/28/1994 [facility]-Adult SDOH Screenings 02/28/1994 [facility]-DTaP,Tdap,and Td Vaccine s (1 - Tdap) 02/28/1995 [facility]-Hepatitis B Vaccines (1 of 3 - 19+ 3-dose series) 02/28/1995 [facility]-Pap Smear 02/28/1997 [facility]-Cervical Cancer Screening 02/28/2006 [facility]-HPV/Cotest 02/28/2006 CT Colonography 02/28/2021 Colonoscopy 02/28/2021 FIT-DNA 02/28/2021 FIT 02/28/2021 FOBT 02/28/2021 Sigmoidoscopy 02/28/2021 [facility]-Colorectal Cancer Screening 02/28/2021 [id number] Vaccine (1 - 20 24-25 season) 2024 [facility]-Influenza Vaccine (Seas[place] n Ended) 2025 [facility]-Zoster Vaccines (1 of 2) 02/28/2026 HPV Vaccines Aged Out No longer eligi ble based on patient's age to complete this topic [facility]-HIB Vaccines Aged Out No longer e ligible based on patient's age to complete this topic [facility]-Hepatitis A Vaccines Aged Out No longer eligible based on patient's age to complete this topic [facility]-IPV Vaccines Aged Out No longer e ligible based on patient's age to complete this topic [facility]-Pneumococcal Vaccine: Pediatrics (0 to 5 Years) and At-Risk Patients (6 to 49 Years) Aged Out No long er eligible based on patient's age to complete this topic [facility]-Rotavirus Vaccines Aged Out No lo nger eligible based on patient's age to complete this topic Insurance JASON Care Teams Hydraulic Strainer Operator Relationship Specialty Start Date End Date Shaun García MD [address] [place], [place] [address] PCP - General 01/10/21
[2025-02-12 21:13] LABS: Basophils % 0.4 % (0.1-2.0); Eosinophils # 0.2 Kmm3 (0.0-0.4); Eosinophils % 1.7 % (0.1-12.0); Hematocrit 34.8 % (37.0-47.0); Hemoglobin 10.3 g/dL (12.2-16.2); Immature Granulocytes # 0.02 10^3uL; Immature Granulocytes % 0.2 %; Lymphocytes # 6.2 K/mm3 (0.7-4.5); Lymphocytes % 61.7 % (10-50); Mean Corpuscular HGB Conc 29.6 g/dL (31.8-35.4); Mean Corpuscular Volume 77.7 fl (81-99); Mean Platelet Volume 9.1 fl (7.4-10.4); Monocytes # 0.4 K/mm3 (0.1-1.0); Monocytes % 3.8 % (1.7-9.3); Neutrophils # 3.2 K/mm3 (1.8-7.8); Neutrophils % 32.2 % (37.0-80.0); Nucleated Red Blood Cells # 0 10^3/uL; Nucleated Red Blood Cells % 0 %; Platelet Count 398 K/mm3 (142-424); Red Blood Count 4.48 M/mm3 (4.20-5.40); Red Cell Distribution Width-SD 76.5 fL; VBG Base Excess -5.6 mmol/L (-2.4-2.3); VBG PCO2 30.5 mmol/L (35-51); VBG PH 7.41 mmol/L (7.31-7.41); VBG PO2 101.5 mmol/L (28-40); VBG Total CO2 19.9 mmol/L (23-27)
[2025-02-12 21:15] LABS: Lactate Venous 3.5 mmol/L (0.4-2.0); Red Cell Distribution Width 27.9 % (11.5-17.5)
[2025-02-12 21:16] LABS: MANUAL DIFFERENTIAL MANUAL DIFFERENTIAL (MANUAL DIFF)
--- NOTE | 2025-02-12 21:18 | ED_ITS ---
Discharge Plan Disposition Patient Disposition: Home, Self-Care Prescriptions Prescriptions: New cefdinir 300 mg capsule 300 mg PO BID 7 Days Qty: 14 0RF phenazopyridine [Pyridium] 200 mg tablet 200 mg PO Q8H 3 Days Qty: 9 0RF No Action phenazopyridine [Pyridium] 200 mg tablet 200 mg PO Q8H 2 Days Qty: 6 0RF cefdinir 300 mg capsule 300 mg PO BID 10 Days Qty: 20 0RF Referrals Follow up/Referrals: Provider,Referral, MD [Primary Care Provider, Medical] - See instructions Activity Restrictions/Add. Instructions Additional Instructions/Restrictions: Call your family doctor to establish care for this visit to the emergency department and schedule follow-up within 48 hours to ensure improvement. If you have any worsening of your condition or any other concerning signs or symptoms, return to the emergency department or your primary care doctor for further evaluation. Antibiotic twice daily for full 7-day course. Clinical Impressions Clinical Impression: UTI (urinary tract infection) Instructions Patient Instructions: DI for Acute Abdominal Pain Print Language Print Language: Kenyan Discharge ED Provider: Alessandro Adams General Adult HPI General Chief complaint: Abdominal Pain Stated complaint: Stomach pain Time Seen by Provider: 02/12/25 21:03 Mode of Arrival: Ambulatory Source of Information: Patient Description of Symptoms (Recalled from ER Triage Doc. 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 Pt reports recent galbladder surgery with staghorn kidney removal approx 2 weeks ago. Pt reports to taken a left over Bactrim and benadryl SSIS SSRS DEVELOPER. No fevers at home that she is aware of History of Present Illness HPI narrative: Please note that above description of symptoms, in this electronic medical record under categorization of recalled from ER triage doctor by RN are reflective of an initial nursing assessment, however, is not reflective of my full history and physical exam that was personally taken and clarified. Consequentially, this preceding description of symptoms, which may include the patient's categorized chief complaint in the EMR, do not reflect my personal clinical impression, and the ultimate description of history of present illness and patient stated complaints should be deferred to this section of the note. Unless stated otherwise or congruent with this section of the note, additional signs, symptoms, or incongruence should be interpreted as inaccurate with my clinical impression. Related Data Previous Rx's ?Medication ?Instructions ?Recorded cefdinir 300 mg capsule 300 mg PO BID 10 days #20 ca ps 01/11/25 phenazopyridine 200 mg tablet 200 mg PO Q8H 2 days #6 tabs 01/11/25 (Pyridium) cefdinir 300 mg capsule 300 mg PO BID 7 days #14 cap s 02/12/25 phenazopyridine 200 mg tablet 200 mg PO Q8H 3 days #9 tabs 02/12/25 (Pyridium) Allergies Allergy/AdvReac Type Severity Reaction Status Date / Time lisinopril AdvReac Verified 01/11/25 19:04 [facility] Disclaimer: The information contained in this section may have been updated after the patient was seen, as this information can be updated by other users. 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 current occupational exposures/hazards: No caffeine: Yes Have you lived/traveled outside US in past 30 days?: No Contact w/someone who lives/traveled outside US past 30 days?: No Exposure to someone with infectious disease in past 14 days?: No Do you have a fever (greater than 100.4 F or 38 C)?: No Have you tested positive for COVID-19?: No Exposed to someone with COVID-19 in past 14 days?: No Do you have a sore throat?: No Do you have a cough?: No Do you have any weakness?: No Do you have any diarrhea?: No Are you experiencing any unusual bleeding?: No Do you have any muscle aches/pain?: No Do you have any abdominal pain?: No Are you experiencing loss of taste or smell?: No Other Medical History Have you received the Flu Vaccine for this season: Yes Have you received the Pneumonia Vaccine: Yes ROS Obtained: Yes All systems reviewed & no additional complaints except as documented Physical Exam General General appearance: alert, in distress and obese Head Head exam: atraumatic and normocephalic Eye Eye exam: Present normal appearance, PERRL and EOMI Neck Neck exam: Present normal inspection, full ROM and trachea midline Respiratory Respiratory exam: Absent respiratory distress, wheezes, stridor, accessory muscle use or prolonged expiratory phase Cardiovascular Cardiovascular exam: Present regular rate, normal rhythm and other (Pulses equal symmetric in upper and lower extremities) Abdominal Exam Abdominal exam: Present soft and tenderness; Absent distention, guarding, rebound, rigidity or pulsatile mass Abdominal tenderness: Present suprapubic and mild Extremities Exam Extremities exam: Absent edema Neurological Exam Neurological exam: Present alert, oriented X3 and CN II-XII intact; Absent motor sensory deficit Skin Skin exam: Present warm and dry; Absent diaphoresis or erythema Medical Decision Making Medical Records Medical records reviewed: Yes I reviewed the patient's medical records. Screening: Per USPSTF and CDC recommendations, given the prevalence of disease in our region, it is our hospital?s policy to screen for HIV and viral Hepatitis for all patients aged 18 and over and those with ongoing risk factors. Amadou Inquiry Pt receiving controlled substance: No Amadou was queried for this patient: No Vital Signs: 02/12/25 21:02 02/12/25 21:18 02/12/25 21:30 Temperature 98.4 F Temperature Source Oral Pulse Rate 60 79 Pulse Rate [Radial] 84 Respiratory Rate 26 H 23 16 Blood Pressure 133/78 144/88 H Blood Pressure [Right Arm] 127/99 H Blood Pressure Mean [Right Arm] 108 Blood Pressure Position [Right Arm] Sitting 02 Sat by Pulse Oximetry 98 98 99 Oxygen Delivery Method Room Air Room Air Room Air 02/12/25 22:00 02/12/25 22:30 02/12/25 23:01 Temperature Temperature Source Pulse Rate 75 76 80 Pulse Rate [Radial] Respiratory Rate 18 15 12 Blood Pressure 136/70 136/69 159/91 H Blood Pressure [Right Arm] Blood Pressure Mean [Right Arm] Blood Pressure Position [Right Arm] 02 Sat by Pulse Oximetry 100 98 97 Oxygen Delivery Method Lab Data Lab Results 02/12/25 21:03: WBC 10.0, RBC 4.48, Hgb 10.3 L, Hct 34.8 L, MCV 77.7 L, MCH 23.0 L, MCHC 29.6 L, RDW 27.9 H*, Plt Count 398, MPV 9.1, Neut % (Auto) 32.2 L, Lymph % (Auto) 61.7 H, Stephenson % (Auto) 3.8, Eos % (Auto) 1.7, Baso % (Auto) 0.4, Neut # (Auto) 3.2, Lymph # (Auto) 6.2 H, Stephenson # (Auto) 0.4, Eos # (Auto) 0.2, Baso # (Auto) 0.0, Total Counted 100, Neutrophils % (Manual) 36 L, Lymphocytes % (Manual) 58 H, Monocytes % (Manual) 6, Anisocytosis 1+, PT 11.4, INR 1.03, APTT 25.1, VBG pH 7.41, VBG pCO2 30.5 L, VBG pO2 101.5 H, VBG HCO3 19.0 L, VBG Total CO2 19.9 L, VBG O2 Saturation 98.0 H, VBG Base Excess -5.6 L, VBG Lactic Acid 3.5 H, Sodium 138, Potassium 4.1, Chloride 110 H, Carbon Dioxide 21 L, Anion Gap 11.1, BUN 16, Creatinine 0.70, Estimated Creat Clear 162, Estimated GFR 89, Est GFR ( Amer) 108, Glucose 198 H, Calcium 9.1, Magnesium 1.7, Total Bilirubin 0.4, AST 30, ALT 19, Alkaline Phosphatase 92, Total Protein 7.5, Albumin 4.0, Globulin 3.5 H, Albumin/Globulin Ratio 1.1, Lipase 336 H, HCG, Quant < 2 02/12/25 21:03 02/12/25 21:03 Orders (Tests/Meds): ED MEDICATIONS Discontinued Medications Generic Name Dose Route Start Last Admin Trade Name Des PRN Reason Stop Dose Admin Hydromorphone HCl 0.5 mg 02/12/25 21:03 02/12/25 21:10 Hydromorphone 2mg/Ml Syringe IV 02/12/25 21:04 0.5 mg ONCE ONE Administration Lactated Ringer's 1,000 mls @ 999 mls/hr 02/12/25 21:22 02/12/25 21:29 Lactated Ringer's 1000 Ml Bag IV 02/12/25 22:22 999 mls/hr .Q1H1M ONE Administration Ceftriaxone Sodium 1 gm/ 50 mls @ 100 mls/hr 02/12/25 22:40 02/12/25 22:48 Sodium Chloride IV 02/12/25 23:09 100 mls/hr ONCE ONE Administration Iopamidol 75 ml 02/12/25 21:53 02/12/25 21:58 Iopamidol-370 (76%);100ml Bottle IV 02/12/25 21:54 75 ml ONCE ONE Administration Ketorolac Tromethamine 15 mg 02/12/25 21:03 02/12/25 21:10 Ketorolac 30mg/Ml Vial IV 02/12/25 21:04 15 mg ONCE ONE Administration Ondansetron HCl 4 mg 02/12/25 21:03 02/12/25 21:10 Ondansetron 4mg/2ml Vial IV 02/12/25 21:04 4 mg ONCE ONE Administration Phenazopyridine HCl 200 mg 02/12/25 22:40 02/12/25 22:48 Phenazopyridine 200mg Tablet PO 02/12/25 22:41 200 mg ONCE ONE Administration Sodium Chloride 10 ml 02/12/25 21:53 02/12/25 21:58 Sodium Chloride 0.9% 10ml Syr (Rad Only) IV 02/12/25 21:54 10 ml ONCE ONE Administration ORDERS Category Date Time Status CT abdomen pelvis w con Stat Cat Scan 02/12/25 21:04 Completed Complete Blood Count Auto Diff Stat Lab 02/12/25 21:03 Completed Comprehensive Metabolic Panel Stat Lab 02/12/25 21:03 Completed HCG,Quantitative Stat Lab 02/12/25 21:03 Completed Lipase Stat Lab 02/12/25 21:03 Completed Magnesium Stat Lab 02/12/25 21:03 Completed PT INR [Prothrombin Time INR] Stat Lab 02/12/25 21:03 Completed PTT [Activated Partial Thrombo Time] Stat Lab 02/12/25 21:03 Completed Urinalysis and Microscopic Stat Lab 02/12/25 21:03 Ordered VBG [Venous Blood Gas] Stat RT 02/12/25 21:03 Completed Medical Decision Narrative: This is a 49-year-old female presenting with lower abdominal pain. She states that she had a staghorn calculus on the right operated on about 3 weeks ago, also had her gallbladder out about 3 weeks ago. Was in her normal state of health until today when she started having crescendo lower abdominal pain that suprapubic. No vaginal bleeding, discharge, fevers or chills. States that she has no pain tolerance, so pain is maximal in intensity, has been getting any better, she has not taken anything for it either. States that she was at work today, dipped her own urine, there was blood and leukocytes in it. Last bowel movement was today and normal for her. No vomiting. Came in for further evaluation. On my evaluation, patient appears to be in moderate distress secondary to pain. She is holding her lower abdomen at her suprapubic area. Tearful, anxious, shaking. Abdomen is soft, nondistended, minimally tender on my exam and pain does not get much worse with application of direct pressure to the area she is holding. Seems to be out of proportion to exam. Differential includes nephrolithiasis, , ovarian torsion, small bowel obstruction, perforation, intra-abdominal sepsis, bile leak, among others. Patient was given Toradol, Dilaudid, fluids and Zofran. Independent interpretation patient's workup demonstrates normal white count at 10, patient has iron deficiency anemia. Blood gas with metabolic acidosis with respiratory compensation. Normal pH at 7.41, bicarb low at 19, CO2 low at 30.5 with lactate of 3.5. Patient given fluids. Chemistry nonactionable. Patient's lipase and hCG negative. On independent interpretation of CT scan, patient has no acute intra- abdominal pathology. Bladder is thick, ureteral inflammation. Intrarenal stones, but no evidence of ureterolithiasis. Reevaluation, patient states she is feeling much better. She was given 1 dose of ceftriaxone prior to urine sample as I feel this is consistent with urinary tract infection. Cefdinir sent to pharmacy. Close return precautions were discussed. Patient was able to provide urine sample prior to leaving, but was not required to stay around for. Because patient at baseline without signs or symptoms of clinical decompensation, deemed appropriate for discharge. Results were relayed to patient who voiced understanding and were agreeable to outpatient management and follow up. I discussed my clinical impression with patient and answered all questions. At this time, the evidence for any other entities in the differential is insufficient to warrant any further testing or ED observation. This was explained as well. Advisory was given that persistent or worsening symptoms require further evaluation. I confirmed the understanding of this discussion. Jackspooler disclaimer Much of this encounter note is an electronic battery plate assembler spoken language to printed text. Electronic battery plate assembler of the spoken language may permit errors. Although I have reviewed the note, some errors may still exist. Critical Care Critical Care Time Critical Care Time: No
[2025-02-12 21:22] LABS: Chloride 110 mmol/L (98-107); Potassium 4.1 mmoL/L (3.5-5.1); Sodium 138 mmol/L (136-145)
[2025-02-12 21:25] LABS: Alanine Aminotransferase 19 U/L (12-78); Albumin/Globulin Ratio 1.1 (1.1-1.8); Alkaline Phosphatase 92 U/L (38-126); Anion Gap 11.1 mEq/L (5-15); Aspartate Amino Transferase 30 U/L (14-36); Bilirubin,Total 0.4 mg/dl (0.2-1.3); Blood Urea Nitrogen 16 mg/dl (7-17); Calcium 9.1 mg/dl (8.4-10.2); Carbon Dioxide 21 mmol/L (22.0-30.0); Creatinine Clearance Estimated 162 mL/min (50-200); Estimated Glomerular Filt Rate 89 ml/min (>60); GFR (African American) 108 ML/MIN (>60); Globulin 3.5 g/dL (1.3-3.2); Glucose 198 mg/dl (74-100); Lipase 336 U/L (23-300); Total Protein,Serum 7.5 g/dl (6.3-8.2)
[2025-02-12 21:26] LABS: Magnesium 1.7 mg/dl (1.6-2.3)
[2025-02-12 21:28] LABS: Activated Partial Thrombo Time 25.1 seconds (22.8-30.6); INR 1.03 (0.9-1.1); Prothrombin Time 11.4 seconds (10.1-12.5)
[2025-02-12] MEDS: LACTATED RINGERS 1000ML 1,000 ML 999 ML IV (21:29)
[2025-02-12 21:44] LABS: HCG,Quantitative < 2 mIU/ml (0-5.42); Lymphocytes % 58 % (10-50); Monocytes % 6 % (2-9); Neutrophils % 36 % (42-76); Total Cells Counted 100
[2025-02-12 21:45] LABS: Anisocytosis 1+
[2025-02-12] MEDS: SODIUM CHLORIDE 0.9% 10ML SYR (RAD ONLY) 10 ML IV (21:58)
[2025-02-12] MEDS: IOPAMIDOL-370 (76%);100ML BOTTLE 75 ML IV (21:58)
[2025-02-12] MEDS: PHENAZOPYRIDINE 200MG TABLET 200 MG PO (22:48)
[2025-02-12] MEDS: CEFTRIAXONE 1 GM 1 GM in 0.9 % SODIUM CHLORIDE 50 ML IV (22:48)
[2025-02-12 23:45] LABS: Microscopic, Urine URINE MICROSCOPIC (MICROSCOPIC)
[2025-02-12 23:49] LABS: Appearance,Urine CLEAR (Clear); Bilirubin,Urine Negative (Negative); Blood, Urine 3+ (Negative); Color,Urine YELLOW (Yellow); Glucose,Urine (UA) Negative (Negative); Ketones,Urine TRACE (Negative); Leukocyte Esterase,Urine Negative (Negative); Nitrate,Urine Negative (Negative); Protein,Urine TRACE (Negative); Urobilinogen,Urine 0.2 EU/dl (0.2)
[2025-02-13 00:10] LABS: Bacteria,Urine 1+ /lpf; RBC,Urine TNTC #/hpf (0-3)
[2025-02-13 01:15] LABS: Reflex Lactic Add Lactic Reflex
== END 2025-02-12 23:44 | disposition home or self-care (01) ==
PROVIDERS: Emergency Provider Emergency Medicine
DX: R10.31 Right lower quadrant pain (principal); N39.0 Urinary tract infection, site not specified
CPT/HCPCS: 74177; 80053; 81001; 82803; 83690; 83735; 84702; 85007; 85025; 85027; 85610; 85730; 96361; 96365; 96375; 99285; J0696; J1171; J1885; J2405; J7120; Q9967

== ENCOUNTER 2025-02-18 19:08 | Outpatient (CLI) | payer BC, SELFPAY ==
--- OUTSIDE RECORDS SUMMARY | 2025-02-18 19:12 | XMS_ITS | Clinical Summary ---
Author Organization [facility] Address [address] [place] [address] Care Team Providers Care Sand Cutter Name Role Phone Shaun García MD Primary Care Provider [phone] Allergies Active Allergy Reactions Criticality Noted Date [...] 02/28/2021 Sigmoidoscopy 02/28/2021 [facility]-Colorectal Cancer Screening 02/28/2021 [id number] Vaccine (1 - 20 24-25 season) 2024 [...] complete this topic Insurance JASON Care Teams Sand Cutter Relationship Specialty Start Date End Date Shaun García MD [address] [place], [place] [address] PCP - General 01/10/21
[2025-02-18 20:12] LABS: Microscopic, Urine URINE MICROSCOPIC (MICROSCOPIC)
[2025-02-18 20:16] LABS: Appearance,Urine CLOUDY (Clear); Bilirubin,Urine Negative (Negative); Blood, Urine 3+ (Negative); Color,Urine ORANGE (Yellow); Glucose,Urine (UA) TRACE (Negative); Ketones,Urine TRACE (Negative); Leukocyte Esterase,Urine TRACE (Negative); Nitrate,Urine POSITIVE (Negative); Protein,Urine 2+ (Negative); Specific Gravity, Urine 1.025 (1.005-1.030)
[2025-02-18 20:34] LABS: Calcium Oxalate Crystals,Urine 1+ /lpf; RBC,Urine TNTC #/hpf (0-3); Squamous Epithelial Cell,Urine 20-50 #/hpf (0-5); WBC,Urine TNTC #/hpf (0-3)
[2025-02-18 20:35] LABS: Bacteria,Urine 4+ /lpf
== END 2025-02-18 23:59 | disposition home or self-care (01) ==
PROVIDERS: PCP Nurse Practitioner Family; Visit Provider Nurse Practitioner Family
DX: R30.0 Dysuria (principal); R50.9 Fever, unspecified
CPT/HCPCS: 81001; 87086

== ENCOUNTER 2025-03-27 10:00 | Outpatient (CLI) | payer BC, SELFPAY ==
--- NOTE | 2025-03-27 10:04 | XR_ITS ---
FINAL REPORT CLINICAL HISTORY: LUMBAGO W/ SCIATICA, RT SIDE/ CHRONIC PAIN COMPARISON: None FINDINGS: Four views of the lumbar spine were obtained. There is grade 2 anterior spondylolisthesis of L4 on L5. Alignment is otherwise normal. Vertebral body height is preserved. There is multilevel degenerative disc disease, most pronounced at L4-5. There are right paraspinal calcifications, which may be renal stones. IMPRESSION: Grade 2 anterior spondylolisthesis. Multilevel degenerative disc disease. Right renal stones. Reviewed, Interpreted and Dictated by Marissa Patel MD Transcribed by Ruby Quintanilla Authenticated and [facility]
--- OUTSIDE RECORDS SUMMARY | 2025-03-27 10:09 | XMS_ITS | Clinical Summary ---
Author Organization [facility] Address [address] [place] [address] Care Team Providers Care Broadcast Correspondent Name Role Phone Shanu García MD Primary Care Provider [phone] Allergies Active Allergy Reactions Criticality Noted Date [...] 02/28/2021 Sigmoidoscopy 02/28/2021 [facility]-Colorectal Cancer Screening 02/28/2021 [id number] Vaccine (1 - 20 24-25 season) 2024 [facility]-Influenza Vaccine (#1) 2025 [facility]-Zoster Vaccines (1 of 2) 02/28/2026 [...] complete this topic Insurance JASON Care Teams Broadcast Correspondent Relationship Specialty Start Date End Date Shaun García MD [address] [place] [id number] PCP - General 01/10/21
== END 2025-03-27 23:59 | disposition home or self-care (01) ==
LOC: RAD 10:02
PROVIDERS: PCP Nurse Practitioner Family; Visit Provider Nurse Practitioner Family
DX: M43.16 Spondylolisthesis, lumbar region (principal); M51.16 Intervertebral disc disorders with radiculopathy, lumbar region; N20.0 Calculus of kidney
CPT/HCPCS: 72110

== ENCOUNTER 2025-04-24 19:19 | Outpatient (CLI) | payer BC, SELFPAY ==
--- OUTSIDE RECORDS SUMMARY | 2025-04-24 19:24 | XMS_ITS | Clinical Summary ---
Author Organization [facility] Address [address] [place] [address] Care Team Providers Care Mds Coordinator Name Role Phone Shaun García MD Primary Care Provider [phone] Allergies Active Allergy Reactions Criticality Noted Date [...] Date Last Done Comments [facility]-Depression Screening 1975 [facility]-/Child/Adol SDOH Screenings 1975 [facility]- SDOH Screenings 02/28/1994 [facility]-Adult SDOH Screenings 02/28/1994 [facility]-DTaP,Tdap,and Td Vaccine s (1 - Tdap) 02/28/1995 [facility]-Hepatitis B Vaccines (1 of 3 - 19+ 3-dose series) 02/28/1995 [facility]-Pap Smear 02/28/1997 [facility]-Cervical Cancer Screening 02/28/2006 [facility]-HPV/Cotest 02/28/2006 CT Colonography 02/28/2021 Colonoscopy 02/28/2021 FIT-DNA 02/28/2021 FIT 02/28/2021 FOBT 02/28/2021 Sigmoidoscopy 02/28/2021 [facility]-Colorectal Cancer Screening 02/28/2021 [id number] Vaccine (1 - 20 24-25 season) 2024 [...] complete this topic Insurance JASON Care Teams Mds Coordinator Relationship Specialty Start Date End Date Shaun García MD [address] [place] [address] PCP - General 01/10/21
[2025-04-24 20:17] LABS: Hematocrit 36.8 % (37.0-47.0); Hemoglobin 11.7 g/dL (12.2-16.2); Immature Granulocytes % 0.3 %; Mean Corpuscular HGB Conc 31.8 g/dL (31.8-35.4); Mean Corpuscular Hemoglobin 27.0 pg (27.0-31.2); Mean Corpuscular Volume 84.8 fl (81-99); Nucleated Red Blood Cells % 0 %; Platelet Count 277 K/mm3 (142-424); Red Blood Count 4.34 M/mm3 (4.20-5.40); Red Cell Distribution Width-SD 52.8 fL; White Blood Count 7.9 K/mm3 (4.8-10.8)
[2025-04-24 20:37] LABS: Albumin Level 4.2 g/dl (3.5-5.0); Chloride 106 mmol/L (98-107); Potassium 3.9 mmoL/L (3.5-5.1); Sodium 137 mmol/L (136-145)
[2025-04-24 20:39] LABS: Alanine Aminotransferase 17 U/L (12-78); Blood Urea Nitrogen 24 mg/dl (7-17); Creatinine,Serum 0.50 mg/dl (0.52-1.04); Estimated Glomerular Filt Rate 131 ml/min (>60); GFR (African American) 159 ML/MIN (>60)
[2025-04-24 20:40] LABS: Albumin/Globulin Ratio 1.3 (1.1-1.8); Alkaline Phosphatase 54 U/L (38-126); Anion Gap 11.9 mEq/L (5-15); Aspartate Amino Transferase 32 U/L (14-36); Bilirubin,Total 0.2 mg/dl (0.2-1.3); Calcium 8.9 mg/dl (8.4-10.2); Carbon Dioxide 23 mmol/L (22.0-30.0); Globulin 3.3 g/dL (1.3-3.2); Glucose 98 mg/dl (74-100); Total Protein,Serum 7.5 g/dl (6.3-8.2)
== END 2025-04-24 23:59 | disposition home or self-care (01) ==
LOC: LAB 19:21
PROVIDERS: PCP Nurse Practitioner Family; Visit Provider Nurse Practitioner Family
DX: R31.0 Gross hematuria (principal)
CPT/HCPCS: 36415; 80053; 85025

== ENCOUNTER 2025-08-06 07:49 | Outpatient (CLI) | payer BC, SELFPAY ==
--- OUTSIDE RECORDS SUMMARY | 2025-07-10 08:11 | XMS_ITS | Continuity of Care Document ---
Author Organization [facility] Phone Care Team Providers Care Chief Gauger Name Role Phone TOMÁS ECHOLS Admitting KINGSLEY FAJARDO Primary Care KINGSLEY FAJARDO Unavailable TOMÁS ECHOLS Primary Attending ALLERGIES AND ADVERSE REACTIONS ALLERGIES AND ADVERSE REACTIONS Code System Allergy Substance Adverse Reaction Date Reaction (Severity) Comment [place] [id number] RXNorm LISINOPRIL Adverse reaction to substance COUGH active Patient [id number] on August 08, 2019 1:23:57 PM [place] FAMILY HISTORY RELATION: Father Status: LIVING SNOMED-CT Diagnosis Age At Onset Information not available RELATION: Mother Status: LIVING SNOMED-CT Diagnosis Age At Onset [id number] Diabetes mellitus [id number] Heart disease RESULTS Patient: BELKIS Jj Date of : 1975 10 LABORATORY RESULTS ORDER 200: CBC NO DIFF HEMOG BREEZY (LOINC: 66477-1) ORDER DATE: July 05, 2025 5:17:00 PM [place] Specimen Source: EDTA Specimen Type: Blood specime n with EDTA PERFORMING LAB: [address] [id number] Result Comment: Final Result Date: July 05, 2025 5:35:00 PM UTC (TECH: ARR) LOINC TEST FLAG RESULT REFERENCE RANGE UPDA LUCILA BY 6690-2 Leukocytes [#/volume ] in Blood by Automated count N 7.0 K/ul 4.0 K/ul - 10.5 K/ul July 05, 2025 5:35:00 PM UTC (TECH: ARR) 789-8 Erythrocytes [#/volu me] in Blood by Automated count N 4.3 M/mm3 4.2 M/mm3 - 6.4 M/mm3 July 05, 2025 5:35:00 PM UTC (TECH: ARR) 718-7 Hemoglobin [Mass/vol ume] in Blood N 12.6 gm/dl 12.5 gm/dl - 16.0 gm/dl July 05, 2025 5:35:00 PM UTC (TECH: ARR) 10758-5 Hematocrit [Volume Fraction] of Blood N 38.9 % 37.0 % - 47.0 % July 05 5:35:00 PM UTC (TECH: ARR) 787-2 Erythrocyte mean corpuscular volume [Entitic volume] by Automated count N 89.6 fl 78 fl - 100 fl July 05, 2025 5:35:00 PM UTC (TECH: ARR) 785-6 Erythrocyte mean corpuscular hemoglobin [Entitic mass] by Automated count N 29.0 pg 27 pg - 31 pg July 05, 2025 5:35:00 PM UTC (TECH: ARR) 786-4 Erythrocyte mean corpuscular hemoglobin concentration [Mass/volume] by Automated count N 32.4 g/dl 32 g/dl - 36 g/dl July 05 5:35:00 PM UTC (TECH: ARR) 06164-3 Erythrocyte distribu tion width [Ratio] H 14.8 % 11.5 % - 14.0 % July 05, 2025 5:35:00 PM UTC (TECH: ARR) 777-3 Platelets [#/volume] in Blood by Automated count N 290 K/ul 150 K/ul - 450 K/ul Nov 2024 5:35:00 PM UTC (TECH: ARR) 73786-4 Platelet mean volume [Entitic volume] in Blood by Automated count N 9.1 fl 6 fl - 9.5 fl [facility] 2024 5:35:00 PM UTC (TECH: ARR) 43831-9 Manual Differential panel - Blood N NO July 05, 2025 5:35:00 PM UTC (TECH: ARR) LABORATORY NARRATIVE RESULTS Information is not available RADIOLOGY RESULTS Information is not available PATHOLOGY NARRATIVE RESULTS Information is not available MICROBIOLOGY RESULTS No Micro Labs/Results Exist for Patient BLOOD ADMIN RESULTS Information is not available MEDICATIONS HOME MEDICATIONS Status RXNORM NDC Medication Dose Route Frequency Dates Comments Reported By Updated By Drug Treatment Unknown DISCHARGE MEDICATIONS Status RXNORM NDC Medication Dose Route Frequency Dates Dis pense Data Comments Physician Updated By No Discharge Medication Info rmation Available INPATIENT MEDICATIONS Status RXNORM NDC Medication Dose Route Frequency Rat e Quantity Dates Indication Dispense Data Comments Physician Updated By No Inpatient Medication Info rmation Available SOCIAL HISTORY SOCIAL HISTORY - Smoking Status SNOMED-CT Social History Element Description Effective Dates Offered Cessation Comment Updated By [id number] Historical Tobacco smoking status Never Smoked [id number] on July 04, 2025 3:11:06 PM [facility] SOCIAL HISTORY - Gender Sex: Female SOCIAL HISTORY - Status : status i nformation is not available Intention in Next Year: intention information is not available SOCIAL HISTORY - Assessments Code System Description Status Date Value of Assessment Updated By Comment Assessment Information is no t available SOCIAL HISTORY - [place] Affiliation [place] information is not av ailable SOCIAL HISTORY - Legal Sex Legal Sex information is not available SOCIAL HISTORY - Sexual Behavior Sexual Orientation Gender Identity SNOMED-CT Description SNO MED -CT Description Activity Level No of Partners Partner Type UpdatedBy Information is not available SOCIAL HISTORY - Occupation Occupation information is no t available HEALTH CONCERNS Problems Concern Status Health Concern problem infor mation not available. Smoking Status Status Years Used Consumed packs p er day Health Concern smoking histo ry information not available. Family History Concern Status Health Concern family histor y information not available. ENCOUNTERS ENCOUNTER INFORMATION Reason for Visit PRE OP Admission July 05, 2025 4:55:[address] [id number] Discharge July 05, 2025 4:55:00 PM [facility] DISCHARGED TO HOME OR SELF CARE ENCOUNTER DIAGNOSES Notes information is not rocio ilable. Code System Diagnosis Onset Date Diagnosis information is not available. ABSTRACT DIAGNOSES Code System Diagnosis Updated By Abatement Date Z01.818 ICD10 ENCOUNTER FOR OT HER PREPROCEDURAL EXAMINATION [id number] on July 09, 2025 6:40:29 AM [facility] Z01.818 ICD10 ENCOUNTER FOR OT HER PREPROCEDURAL EXAMINATION [id number] on July 09, 2025 6:40:31 AM [facility] CARE TEAM Care Chief Gauger Role TOMÁS ECHOLS Admitting KINGSLEY FAJARDO Primary Care KINGSLEY FAJARDO Referring TOMÁS DEPA Primary Attending CARE TEAM CARE dry food products mixer Role on Team Location Telecom Status Start Date End Terence e Updated By TANA WYNN Referring normal July 05, 2025 5:00:00 AM [facility] July 05, 2025 4:55:00 PM [facility] [id number] on July 05, 2025 4:59:11 PM [facility] ONESIMO LUNA Attending normal July 05, 2025 5:00:00 AM [facility] July 05, 2025 4:55:00 PM [facility] [id number] on July 05, 2025 4:59:11 PM [facility] ONESIMO LUNA Admitting normal July 05, 2025 5:00:00 AM [facility] July 05, 2025 4:55:00 PM [facility] [id number] on July 05, 2025 4:59:11 PM [facility] TANA WYNN PCP normal July 05, 2025 5:00:00 AM [facility] July 05, 2025 4:55:00 PM [facility] [id number] on July 05, 2025 4:59:11 PM [facility]
--- OUTSIDE RECORDS SUMMARY | 2025-07-19 22:02 | XMS_ITS | Continuity of Care Document ---
Author Organization [facility] Phone Care Team Providers Care Dog Behaviorist Name Role Phone TANAKINGSLEY VÁSQUEZ Primary Care ART, EVELYN Grier Unavailable ART, EVELYN Grier Primary Attending ART, EVELYN Grier Surgeon ART, EVELYN Grier Admitting ALLERGIES AND ADVERSE REACTIONS ALLERGIES AND ADVERSE REACTIONS Code System Allergy Substance Adverse Reaction Date Reaction (Severity) [place] [id number] RXNorm LISINOPRIL Adverse reaction to substance COUGH active Patient [id number] on August 08, 2019 1:23:57 PM UTC ASSESSMENTS Kidney stone ; FAMILY HISTORY RELATION: Father Status: LIVING SNOMED-CT Diagnosis Age At Onset Information not available RELATION: Mother Status: LIVING SNOMED-CT Diagnosis Age At Onset [id number] Diabetes mellitus [id number] Heart disease PROBLEMS PATIENT PROBLEMS Code Description/Comments Category Status Upda lucila By [id number] Kidney stone active [id number] on 2024 1:43:39 PM UTC RESULTS Patient: BELKIS Jj Date of : 1975 10 LABORATORY RESULTS ORDER 400: URINE T EST (LOINC: 2105-10) ORDER DATE: July 06, 2025 1:12:00 PM UTC Specimen Source: URINE Specimen Type: Urine specime n PERFORMING LAB: [address] [id number] Result Comment: Final Result Date: July 09, 2025 11:33:00 AM UTC (TECH: LUISITO) LOINC TEST FLAG RESULT REFERENCE RANGE UPDA LUCILA BY 2105-10 Choriogonadotropin ( test) [Presence] in Urine N NEGATIVE NEGATIVE July 09, 2025 11:33:00 AM UTC (TECH: [employer]) 38001-5 Reagent Lot number N [id number] N [id number] 11:33:00 AM UTC (TECH: [employer]) 79465-0 Choriogonadotropin [Units/volume] in Serum or Plasma N 02/14/26 July 09, 2025 11:33:00 AM UTC (TECH: [employer]) 55825-5 Internal control result N OK POSITI VE July 09, 2025 11:33:00 AM UTC (TECH: [employer]) ORDER 700: GLUCOSE BEDSIDE T ESTING (LOINC: 36820-4) ORDER DATE: July 09, 2025 11:41:00 AM UTC Specimen Source: WHOLE BLOOD Specimen Type: Whole blood s ample PERFORMING LAB: [address] [id number] Result Comment: July 09, 2025 11:44:00 AM UTC Test performed by: [id number] ; Instrument: [id number] Final Result Date: July 09, 2025 11:44:00 AM UTC LOINC TEST FLAG [place] [address]-4 Glucose [Mass/volume] in Capillary blood by Glucometer N 87 mg/dl 70 mg/dl - 105 mg/dl July 09, 2025 11:44:00 AM UTC ORDER 800: CALCULI UR STONE ANALYSIS (LOINC: 9796-4) ORDER DATE: July 09, 2025 1:06:00 PM UTC Specimen Source: STONE Specimen Type: Calculus spec imen PERFORMING LAB: [address] [id number] Result Comment: July 19, 2025 6:10:00 PM UTC Performed at: [facility] Result Comment: July 19, 2025 6:10:00 PM UTC [address] [place] [id number] Result Comment: July 19, 2025 6:10:00 PM UTC Test Engine Evaluator: Noelle Lees PhD, Phone: [phone] Result Comment: July 19, 2025 6:10:00 PM UTC Final Result Date: July 09, 2025 1:10:00 PM UTC (TECH: LAB) LOINC TEST FLAG [place] [address]-2 Specimen source identified N Comment July 09, 2025 1:10:00 PM UTC (TECH: LAB) 9796-4 Color of Stone N Gu Novem 2024 1:10:00 PM UTC (TECH: LAB) 9802-0 Size [Entitic volume ] of Stone N 5x4 mm July 09, 2025 1:10:00 PM UTC (TECH: LAB) 9804-6 Weight of Stone N 82 mg Nove mb 2024 1:10:00 PM UTC (TECH: LAB) 11612-4 Calcium oxalate dihydrate crystals [Presence] in Stone by Infrared spectroscopy N July 09, 2025 1:10:00 PM UTC (TECH: LAB) 53092-4 Calcium oxalate monohydrate crystals [Presence] in Stone by Infrared spectroscopy N 70 % July 09, 2025 1:10:00 PM UTC (TECH: LAB) 66034-5 Calcium/Phosphate [Mass Ratio] in Serum or Plasma N 30 % July 09, 2025 1:10:00 PM UTC (TECH: LAB) 21343-9 Calcium/Phosphate [Mass Ratio] in Serum or Plasma N July 09, 2025 1:10:00 PM UTC (TECH: LAB) 14055-1 Calcium phosphate crystals [Presence] in Stone by Infrared spectroscopy N July 09, 2025 1:10:00 PM UTC (TECH: LAB) 68670-2 Cystine [Moles/volume] in Serum or Plasma N July 09, 2025 1:10:00 PM UTC (TECH: LAB) 51560-6 Cholesterol/Total in Stone N July 09, 2025 1:10:00 PM UTC (TECH: LAB) 37059-4 Calcium bilirubinate/Total in Stone N July 09, 2025 1:10:00 PM UTC (TECH: LAB) 97792-5 Calcium carbonate crystals [Presence] in Stone by Infrared spectroscopy N July 09, 2025 1:10:00 PM UTC (TECH: LAB) 34615-6 Triamterene/Total in Stone N July 09, 2025 1:10:00 PM UTC (TECH: LAB) 92636-7 Newberyite/Total in Stone N July 09, 2025 1:10:00 PM UTC (TECH: LAB) 71194-8 Calculus analysis [interpretation] in Stone N Comment July 09, 2025 1:10:00 PM UTC (TECH: LAB) 8251-1 Service comment N Mary mber 2024 1:10:00 PM UTC (TECH: LAB) 06326-3 Triple phosphate crystals [type] in Stone by Light microscopy N July 09, 2025 1:10:00 PM UTC (TECH: LAB) 30451-0 Drugs identified in Urine N July 09, 2025 1:10:00 PM UTC (TECH: LAB) 24766-3 2,8-dihydroxyadenine / Creatinine [Molar ratio] in Urine N July 09, 2025 1:10:00 PM UTC (TECH: LAB) 09600-6 Ammonium urate/Total in Stone N July 09, 2025 1:10:00 PM UTC (TECH: LAB) 33964-7 Palmitate (C16:0)/Creatinine [Molar ratio] in Urine N July 09, 2025 1:10:00 PM UTC (TECH: LAB) 91427-4 Sodium urate/Total i n Stone by Infrared spectroscopy N July 09, 2025 1:10:00 PM UTC (TECH: LAB) 53719-7 Urate/Total in Stone N July 09, 2025 1:10:00 PM UTC (TECH: LAB) 32960-1 Calcium [Presence] i n Urine N July 09, 2025 1:10:00 PM UTC (TECH: LAB) 52323-2 Bilirubin.total/Tota l in Stone by Infrared spectroscopy N July 09, 2025 1:10:00 PM UTC (TECH: LAB) 77311-3 Calcium hydrogen phosphate dihydrate/Total in Stone N July 09, 2025 1:10:00 PM UTC (TECH: LAB) 69478-8 Other N June 302024 1:10:00 PM UTC (TECH: LAB) 23174-8 Xanthine/Total in Stone N July 09, 2025 1:10:00 PM UTC (TECH: LAB) 21884-5 Urate dihydrate/Tota l in Stone N July 09, 2025 1:10:00 PM UTC (TECH: LAB) 51394-4 Unspecified body region Image ID N . July 09, 2025 1:10:00 PM UTC (TECH: LAB) ORDER 1200: GLUCOSE BEDSIDE TESTING (LOINC: 06660-8) ORDER DATE: July 09, 2025 1:52:00 PM UTC Specimen Source: WHOLE BLOOD Specimen Type: Whole blood s ample PERFORMING LAB: [address] [id number] Result Comment: July 09, 2025 1:53:00 PM UT Test performed by: [id number] ; Instrument: [id number] Final Result Date: July 09, 2025 1:53:00 PM UT LOINC TEST FLAG [place] [address]-0 Glucose [Mass/volume ] in Capillary blood by Glucometer N 77 mg/dl 70 mg/dl - 105 mg/dl June 1:53:00 PM UT LABORATORY NARRATIVE RESULTS Information is not available RADIOLOGY RESULTS ORDER 1100: FLUORO LESS THAN 1 HR (LOINC: 14201-8) ORDER DATE: July 09, 2025 1:43:00 PM UTC PERFORMING LAB: [address] [id number] Final Result Date: July 11, 2025 10:14:[address] [address] Name: AKILAH TAMAYO Exam Date: 07/09/2025 : 1975 Age 50 years Gender: F Physician: EVELYN WILBURN Facility: [facility] Facility HSV: Outpatient Exam: FLUORO LESS THAN 1 HR FL LESS THAN 1 HOUR Reason For Study: Calculus of kidney FINDINGS: Fluoroscopic assistance was provided to the attending physician by the invasive cardiovascular technologist. RADIATION DOSE: Radiation exposure in reference to Air Kerma: 17.735 mGy FLUOROSCOPY TIME: 54.5 seconds . FLUOROSCOPY FILMS: 1 IMPRESSION: Fluoroscopic assistance provided. Please see operative report. Electronically signed by: Amadou Paez MD 07/11/2025 05:14 PM [facility] Dictated By: Amadou Paez Transcribed By: Transcribed On: 07/11/2025 5:14 PM Electronically signed by: Amadou Paez 07/11/2025 Thank you for referring AKILAH TAMAYO to [facility]. Legally authenticated by KELIN WOOTEN 2025-07-11 17:14:42 PATHOLOGY NARRATIVE RESULTS Information is not available MICROBIOLOGY RESULTS No Micro Labs/Results Exist for Patient BLOOD ADMIN RESULTS Information is not available TREATMENT PLAN DISCHARGE MEDICATIONS Status RXNORM Medication Dose Route Frequency Dates Comments U pdated By Continued 725506 Iron Oral Tablet 325 (65 Fe) MG 1 TAB ORAL Prescribed : July 09, 2025 1:42:54 PM UTC 3 x a week [id number] on July 09, 2025 1:42:54 PM UTC Continued 739391 Senna Laxative Oral Tablet 8.6 MG 1 TAB ORAL TWICE A DAY Prescribed : July 09, 2025 1:42:54 PM UTC [id number] on July 09, 2025 1:42:54 PM UTC Continued Multivitamin Adult (Minerals) Oral Tablet 1 TAB ORAL ONCE DAILY Prescribed : July 09, 2025 1:42:54 PM UTC [id number] on July 09, 2025 1:42:54 PM UTC Continued 104014 CeleXA Oral Tablet 20 MG 20 MG ORAL ONCE DAILY Prescribed : July 09, 2025 1:42:54 PM UTC [id number] on July 09, 2025 1:42:54 PM UTC Continued 645514 traMADol HCl Oral Tablet 50 MG 1 TAB ORAL EVERY SIX HOURS NEEDED Prescribed : July 09, 2025 1:42:54 PM UTC [id number] on July 09, 2025 1:42:54 PM UTC Continued 521904 Cefdinir Oral Capsule 300 MG 1 TAB ORAL TWICE A DAY Prescribed : July 09, 2025 1:42:54 PM UTC [id number] on July 09, 2025 1:42:54 PM UTC Continued 799321 oxyBUTYnin Chloride Oral Tablet 5 MG 1 TAB ORAL EVERY SIX HOURS Prescribed : July 09, 2025 1:42:54 PM UTC [id number] on July 09, 2025 1:42:54 PM UT PATIENT OPEN ORDERS Code System Descriptio n Frequency Occurrenc es Priority Category Start Date Ordering Physician Updated By Patient open order informati on is not available. SCHEDULED PROCEDURES Code System Description Status Scheduled Date Upd ated By Patient scheduled procedure information is not available. MEDICATIONS HOME MEDICATIONS Status RXNORM NDC Medication Dose Route Frequency Dates Comments Reported By Updated By Active 090171 90473 03433 1 CeleXA Oral Tablet 20 MG 20.0 MG ORAL DAILY Last Dose: [facility] 2024 2:00:00 AM UT [id number] on July 09, 2025 11:15:46 AM UT Active 85882 34224 1 Multivitamin Adult (Minerals) Oral Tablet 1.0 TAB ORAL DAILY Last Dose: [facility] 2024 2:00:00 AM [facility] [id number] on July 09, 2025 11:16:16 AM UT Active 89864 69305 1 Senna Laxative Oral Tablet 8.6 MG 1.0 TAB ORAL BID Last Dose: [facility] 2024 2:00:00 AM [facility] [id number] on July 09, 2025 11:16:28 AM UT Active 99250 94761 1 Iron Oral Tablet 325 (65 Fe) MG 1.0 TAB ORAL Last Dose: [facility] 2024 2:00:00 AM UT 3 x a week [id number] on July 09, 2025 1:42:07 PM UT DISCHARGE MEDICATIONS Status RXNORM [facility] Medication Dose Route Frequency Dates Dis pense Data Comments Physician Updated By Continu ed [id number] 4788 6025 301 Iron Oral Tablet 325 (65 Fe) MG 1.0 TAB ORAL Prescr ibed: [facility] 2024 1:42:5 4 PM UTC 3 x a week ART EVELYN Grier PHY [id number] on July 09, 2025 1:42:54 PM UT Continu ed 761369 8066 5031 401 Senna Laxative Oral Tablet 8.6 MG 1.0 TAB ORAL TWICE A DAY Prescr ibed: [facility] 2024 1:42:5 4 PM UTC ART EVELYN Grier PHY [id number] on July 09, 2025 1:42:54 PM UTC Continu ed 1191 7017 051 Multivitami n Adult (Minerals) Oral Tablet 1.0 TAB ORAL ONCE DAILY Prescr ibed: [facility] 2024 1:42:5 4 PM UTC ART EVELYN Grier PHY [id number] on July 09, 2025 1:42:54 PM UTC Continu ed 845564 4322 6402 001 CeleXA Oral Tablet 20 MG 20.0 MG ORAL ONCE DAILY Prescr ibed: [facility] 2024 1:42:5 4 PM UTC ART EVELYN Grier PHY [id number] on July 09, 2025 1:42:54 PM UT Continu ed 440317 0452 4037 708 traMADol HCl Oral Tablet 50 MG 1.0 TAB ORAL EVERY SIX HOURS NEEDED Prescr ibed: [facility] 2024 1:42:5 4 PM UTC ART EVELYN Grier PHY [id number] on July 09, 2025 1:42:54 PM [facility] Continu ed 851061 1420 0071 160 Cefdinir Oral Capsule 300 MG 1.0 TAB ORAL TWICE A DAY Prescr ibed: [facility] 2024 1:42:5 4 PM UTC ART EVELYN Grier PHY [id number] on July 09, 2025 1:42:54 PM [facility] Continu ed 464644 6113 2003 800 oxyBUTYnin Chloride Oral Tablet 5 MG 1.0 TAB ORAL EVERY SIX HOURS Prescr ibed: [facility] 2024 1:42:5 4 PM UT ART EVELYN Grier PHY [id number] on July 09, 2025 1:42:54 PM [facility] INPATIENT MEDICATIONS Status RXNORM [facility] Medication Dose Route Frequency Rat e Quantity Dates Indication Dispense Data Comments Physician Updated By Discont inued [id number] 3527 7094 001 ceFAZolin (ANCEF) 2 GM SOLR 2.0 GM INTRAV ENOUS ONE TIME ADMINISTRA TION (UNSCHEDUL ED) Start: [facility] 2024 11:00: 00 AM UT End: [facility] 2024 11:42: 35 AM [facility] DARNELL BERNABE [id number] on July 09, 2025 11:42:00 AM UT Discont inued 140132 8712 8011 704 LACTATED RINGERS SOLN 1000. 0 ML INTRAV ENOUS ONE TIME ONLY (PACU) 25.0 ML/HR Start: [facility] 2024 4:26:0 0 PM UT End: [facility] 2024 1:42:5 4 PM UT ANTONELLA CALLAWAY [id number] on July 10, 2025 5:25:00 AM UT Discont inued 1973632 0040 9117 630 meperidine (DEMEROL) 25 MG/ML SOLN 12.5 MG INTRAV ENOUS NEEDED (PACU) Start: [facility] 2024 4:26:0 0 PM UTC End: [facility] 2024 1:42:5 4 PM UTC ANTONELLA CESIA [id number] on July 10, 2025 5:25:00 AM UTC Discont inued 4070073 0040 9117 630 meperidine (DEMEROL) 25 MG/ML SOLN 25.0 MG INTRAV ENOUS NEEDED (PACU) Start: [facility] 2024 4:26:0 0 PM UTC End: [facility] 2024 1:42:5 4 PM UTC ANTONELLA CESIA [id number] on July 10, 2025 5:25:00 AM UTC Discont inued 8654991 0064 1624 725 fentaNYL (SUBLIMAZE) VIAL 50 MGC/ML SOLN 25.0 MCG INTRAV ENOUS EVERY 5 MINUTES NEEDED (PACU) Start: [facility] 2024 4:26:0 0 PM UTC End: [facility] 2024 1:42:5 4 PM UTC ANTONELLA CESIA [id number] on July 10, 2025 5:25:00 AM UTC Discont inued 6033021 0064 1624 725 fentaNYL (SUBLIMAZE) VIAL 50 MGC/ML SOLN 50.0 MCG INTRAV ENOUS EVERY 5 MINUTES NEEDED (PACU) Start: [facility] 2024 4:26:0 0 PM UTC End: [facility] 2024 1:42:5 4 PM UTC ANTONELLA CESIA [id number] on July 10, 2025 5:25:00 AM UTC Discont inued 8536559 4114 9426 401 HYDROmorpho ne (DILAUDID) 0.5 MG/0.5ML SOLN 0.5 MG INTRAV ENOUS EVERY 10 MINUTES NEEDED (PACU) Start: [facility] 2024 4:26:0 0 PM UTC End: [facility] 2024 1:42:5 4 PM UTC ANTONELLA CESIA [id number] on July 10, 2025 5:25:00 AM UTC Discont inued 7892252 6978 9128 331 HYDROmorpho ne (DILAUDID) 1 MG/ML SOLN 1.0 MG INTRAV ENOUS EVERY 10 MINUTES NEEDED (PACU) Start: [facility] 2024 4:26:0 0 PM UTC End: [facility] 2024 1:42:5 4 PM UTC ANTONELLA CESIA [id number] on July 10, 2025 5:25:00 AM UTC Discont inued 1453172 6462 8010 250 PERCOCET 5-325 MG TABS 1.0 TAB ORAL ONE TIME ADMINISTRA TION (UNSCHEDUL ED) Start: [facility] 2024 4:26:0 0 PM UTC End: [facility] 2024 6:40:0 0 PM UTC ANTONELLA CESIA [id number] on July 10, 2025 5:25:00 AM UTC Discont inued 9449328 7286 5613 000 ondansetron (ZOFRAN) INJ 4 MG/2 ML SOLN 4.0 MG INTRAV ENOUS NEEDED (PACU) Start: [facility] 2024 4:26:0 0 PM UTC End: [facility] 2024 1:42:5 4 PM UTC ANTONELLA CESIA [id number] on July 10, 2025 5:25:00 AM UTC Discont inued 2474438 0051 7970 201 droperidol (INAPSINE) 2.5 MG/ML SOLN 0.625 MG INTRAV ENOUS NEEDED (PACU) Start: [facility] 2024 4:26:0 0 PM UTC End: [facility] 2024 1:42:5 4 PM UTC ANTONELLA CESIA [id number] on July 10, 2025 5:25:00 AM UTC Discont inued 4694449 3131 3041 112 midazolam (VERSED) 2 MG/2 ML SOLN 1.0 MG INTRAV ENOUS EVERY FIVE MINUTES NEEDED Start: [facility] 2024 4:26:0 0 PM UTC End: [facility] 2024 1:42:5 4 PM UTC ANTONELLA CESIA [id number] on July 10, 2025 5:25:00 AM UTC Discont inued 3477014 5075 3041 112 midazolam (VERSED) 2 MG/2 ML SOLN 2.0 MG INTRAV ENOUS NEEDED (PACU) Start: [facility] 2024 4:26:0 0 PM UTC End: [facility] 2024 1:42:5 4 PM UTC ANTONELLA CESIA [id number] on July 10, 2025 5:25:00 AM UTC Discont inued 455005 1063 1092 825 promethazin e (PHENERGAN) 25 MG/ML SOLN 12.5 MG INTRAV ENOUS NEEDED (PACU) Start: [facility] 2024 4:26:0 0 PM UTC End: [facility] 2024 1:42:5 4 PM UTC ANTONELLA CESIA [id number] on July 10, 2025 5:25:00 AM UTC Discont inued XXXX XXX0 011 promethazin e (PHENERGAN) 12.5 MG GEL 12.5 MG TOPICA L NEEDED (PACU) Start: [facility] 2024 4:26:0 0 PM UTC End: [facility] 2024 1:42:5 4 PM UTC ANTONELLA CESIA [id number] on July 10, 2025 5:25:00 AM UTC Discont inued 5004502 4844 5623 105 ceFAZolin (ANCEF) 2 GM SOLR 2.0 GM INTRAV ENOUS ONE TIME ONLY (SCHEDULED DOSE) Start: [facility] 2024 11:38: 00 AM UTC End: [facility] 2024 11:38: 00 AM UT ART EVELYN S INTERFAC ED on July 09, 2025 11:36:00 AM UTC Discont inued 1441770 8947 9301 305 lidocaine (XYLOCAINE) 2% UROJET GEL 10.0 ML ONE TIME ONLY (SCHEDULED DOSE) Start: [facility] 2024 12:14: 00 PM UTC End: [facility] 2024 12:14: 00 PM UTC ART EVELYN S INTERFAC ED on July 09, 2025 12:13:00 PM UTC Discont inued 5038632 9067 9909 332 PACU - fentaNYL (SUBLIMAZE) 100 MCG/2ML SOLN 100.0 MCG INTRAV ENOUS ONE TIME ONLY (SCHEDULED DOSE) Start: [facility] 2024 12:20: 00 PM UTC End: [facility] 2024 12:20: 00 PM UT ART EVELYN S INTERFAC ED on July 09, 2025 12:19:00 PM UTC Discont inued 6332 3080 811 fentaNYL (SUBLIMAZE) SYRINGE 50 MCG/ML SOSY 50.0 MCG INTRAV ENOUS ONE TIME ONLY (SCHEDULED DOSE) Start: 2024 2:00:0 0 PM UTC End: [facility]2024 2:00:0 0 PM UTC ART EVELYN S INTERFAC ED on July 09, 2025 1:59:00 PM UTC Discont inued 6332 3080 811 fentaNYL (SUBLIMAZE) SYRINGE 50 MCG/ML SOSY 50.0 MCG INTRAV ENOUS ONE TIME ONLY (SCHEDULED DOSE) Start: [facility]2024 2:08:0 0 PM UTC End: [facility]2024 2:08:0 0 PM UTC ART EVELYN S INTERFAC ED on July 09, 2025 2:08:00 PM UTC Discont inued 5592218 4697 9020 901 PROPOFOL 200 MG/20ML EMUL 200.0 MG INTRAV ENOUS ONE TIME ONLY (SCHEDULED DOSE) 8.333 MG/HR Start: 2024 3:01:0 0 PM UTC End: [facility]2024 3:03:2 6 PM UTC ART EVELYN S [id number] on July 09, 2025 3:03:00 PM UTC Discont inued 7980954 3443 301 505 DEXAMETHASO NE SODIUM PHOSPHATE 20.0 MG INTRAV ENOUS ONE TIME ONLY (SCHEDULED DOSE) 0.833 MG/HR Start: [facility]2024 3:01:0 0 PM UTC End: [facility]2024 3:03:2 6 PM UTC ART EVELYN S [id number] on July 09, 2025 3:03:00 PM UTC Discont inued 9232298 8875 9379 501 KETOROLAC TROMETHAMIN E 30 MG/M 30.0 MG ONE TIME ONLY (SCHEDULED DOSE) 1.25 MG/HR Start: 2024 3:01:0 0 PM UTC End: [facility]2024 3:03:2 6 PM UTC ART EVELYN S [id number] on July 09, 2025 3:03:00 PM UTC Discont inued 2603563 2707 5613 000 ONDANSETRON HCL 4 MG/2ML SOLN 4.0 MG INTRAV ENOUS ONE TIME ONLY (SCHEDULED DOSE) 0.167 MG/HR Start: 2024 3:01:0 0 PM UTC End: 2024 3:03:2 6 PM UTC ART EVELYN Grier [id number] on July 09, 2025 3:03:00 PM UT Discont inued 1565898 3317 9428 202 LIDOCAINE HCL (PF) 2 % SOLN 10.0 ML ONE TIME ONLY (SCHEDULED DOSE) Start: 2024 3:01:0 0 PM UTC End: 2024 3:03:2 6 PM UTC ART EVELYN Grier [id number] on July 09, 2025 3:03:00 PM UTC SOCIAL HISTORY SOCIAL HISTORY - Smoking Status SNOMED-CT Social History Element Description Effective Dates Offered Cessation Comment Updated By [id number] Current Tobacco smoking status Never Smoked [id number] on July 04, 2025 3:11:06 PM UT SOCIAL HISTORY - Gender Sex: Female SOCIAL HISTORY - Status : status i nformation is not available Intention in Next Year: intention information is not available SOCIAL HISTORY - Assessments Code System Description Status Date Value of Assessment Updated By Comment Assessment Information is no t available SOCIAL HISTORY - [place] Affiliation [place] information is not av ailable SOCIAL HISTORY - Legal Sex Legal Sex information is not available SOCIAL HISTORY - Sexual Behavior Sexual Orientation Gender Identity SNOMED-CT Description SNO MED -CT Description Activity Level No of Partners Partner Type UpdatedBy Information is not available SOCIAL HISTORY - Occupation Occupation information is no t available VITAL SIGNS PATIENT VITAL SIGNS This section displays the mo st recent value for each vital sign as of July 20, 2025 3:02:19 AM UT Loinc Code Vital Sign Activity Date Result Updated By 8302-2 Body height July 09 11:28:46 AM UTC 170.18 cm (67.0 in) [id number] on July 09, 2025 11:28:[place] [address]-5 Body mass index (BMI) [Ratio] July 09, 2025 11:28:46 AM UTC 37.944 kg/m2 3140-1 Body Surface Area Derived From Formula July 09, 2025 11:28:46 AM UTC 2.1938 m2 23751-5 Body weight Measured July 09, 2025 11:28:46 AM [facility] 109.9 kg (242.0 lb) [id number] on July 09, 2025 11:28:46 AM [facility] PEDIATRIC GROWTH CHART - VITAL SIGNS This section displays Head C ircumference Percentile, Weight for Length Percentile and BMI Percentile Loinc Code Pediatric Measure Age (Months) Result Updat ed By No Pediatric Growth Chart Pe rcentile Information Available. PROCEDURES PATIENT PROCEDURES Procedure information is not available. PROCEDURE NOTE Note Title Operative/Procedure Note Date Of Service July 09, 2025 1: 38:21 PM UTC Created By [id number] on July 09, 2025 1:38:21 PM UTC Signed By [id number] on July 09, 2025 1:41:05 PM UT Pre-Procedure Diagnosis Right kidney stones Post- Procedure Diagnosis Same Procedure / Surgery None 1. Cystoscopy with right ureteral catheterization 2. Right retrograde pyelogram 3. Right ureteroscopy with laser lithotripsy and right stent placement 4. Right ureteroscopy with basket stone extraction Anesthesia Type General anesthesia Estimated Blood Loss Minimal Complications None Procedure Description / Findings After informed consent was obtained from the patient, she was taken the operating room where she was placed in a comfortable supine position on the procedure table. Time-out was performed confirming correct patient, correct procedure, and correct operative site. General anesthesia was induced and preoperative IV antibiotics were administered. She was then placed in dorsal lithotomy position and genitals were prepped and draped in the usual sterile fashion. We inserted the rigid cystoscope into the bladder and visualized the right ureteral orifice. This was catheterized with an open-ended 5 Spanish Lopez catheter and right retrograde pyelogram was performed. There was filling defect corresponding to an approximate 10 mm stone in the proximal right ureter. We then advanced 2 sensor tip guidewires beyond the stone and into the right renal pelvis. A 12/14 Spanish ureteral access sheath was then advanced to the right ureter under fluoroscopic guidance. At this time, we advanced the flexible ureteroscope into the access sheath and guided this towards the stone. We pushed the stone back into the renal pelvis itself. A 200 micron fiber was then advanced and we performed laser lithotripsy. The stone was essentially dusted into fine particles with the exception of 3 larger fragments. We then inspected the remaining calices and identified the 2nd stone measuring approximately 5-6 mm in the lower pole calices. Once again we performed laser lithotripsy and broke the stone into dust with 2 larger fragments. The scope was then withdrawn. We then reinserted the flexible ureteroscope with a ZeroTip Nitinol basket and removed all significant fragments. These were passed off the field and sent for analysis. We slowly withdrew the scope down the full length of the right ureter along with the access sheath and no additional fragments were seen. We then reinserted the rigid cystoscope and advanced a 4.6 x 24 cm double-J ureteral stent over our remaining wire under fluoroscopic guidance. Once in position, the wire was removed and we visualized the proximal coil in the right renal pelvis under fluoro with the distal coil directly visualized in the bladder lumen. The bladder was drained through the cystoscope sheath and viscous lidocaine 2% gel was instilled in urethra. The procedure was terminated, patient was awoken and transferred the PACU in stable condition. Specimens Right kidney stone fragment Tubes/Drains None Implants Right ureteral stent Disposition of Patient Stable to PACU [place] 0[address] [facility] Problems Concern Status [facility] Concern problem infor mation not available. Smoking Status Status Years Used Consumed packs p er day Health Concern smoking histo ry information not available. Family History Concern Status Health Concern family histor y information not available. ENCOUNTERS ENCOUNTER INFORMATION Reason for Visit CYSTOSCOPY WITH URET EROSCOPY Admission July 09, 2025 10:40:[address] [id number] Discharge July 09, 2025 6:40:00 PM [facility] DISCHARGED TO HOME OR SELF CARE ENCOUNTER DIAGNOSES Notes information is not rocio ilable. Code System Diagnosis Onset Date Diagnosis information is not available. ABSTRACT DIAGNOSES Code System Diagnosis Updated By Abatement Date N20.0 ICD10 CALCULUS OF KIDNEY [id number] o n July 11, 2025 2:32:11 PM [facility] N20.0 ICD10 CALCULUS OF KIDNEY [id number] o n July 11, 2025 2:32:11 PM [facility] M54.50 ICD10 LOW BACK PAIN, UNSPECIFIED A [id number] on July 11, 2025 2:32:11 PM [facility] F32.A ICD10 DEPRESSION, UNSPECIFIED [id number] on July 11, 2025 2:32:11 PM [facility] F41.9 ICD10 ANXIETY DISORDER, UNSPECIFIE D [id number] on July 11, 2025 2:32:11 PM [place] D64.9 ICD10 ANEMIA, UNSPECIFIED [id number] on July 11, 2025 2:32:11 PM [place] E11.9 ICD10 TYPE 2 DIABETES MELLITUS WITHOUT COMPLICATIONS [id number] on July 11, 2025 2:32:11 PM [place] Z87.442 ICD10 PERSONAL HISTORY OF URINARY CALCULI [id number] on July 11, 2025 2:32:11 PM [place] Z98.84 ICD10 BARIATRIC SURGERY STATUS AAD [id number] on July 11, 2025 2:32:11 PM [place] 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 [id number] on July 11, 2025 2:32:11 PM [place] Z88.8 ICD10 ALLERGY STATUS T O OTHER DRUGS, MEDICAMENTS AND BIOLOGICAL SUBSTANCES [id number] on July 11, 2025 2:32:11 PM [facility] CARE TEAM Care Dog Behaviorist Role KINGSLEY FAJARDO Primary Care EVELYN WILBURN Referring EVELYN WILBURN Primary Attending EVELYN WILBURN Surgeon EVELYN WILBURN Admitting HOSPITAL DISCHARGE INSTRUCTION DISCHARGE INSTRUCTION Encounter [id number] Admit Date July 09, 2025 10 :40:00 AM [facility] Discharge Date July 09, 2025 6: 40:00 PM [facility] PATIENT EDUCATION SUMMARY Patient/Visit Information: Patient Name: AKILAH TAMAYO Diag: Attending Caregiver: SANTOSH Grier Discharge Instruction Sheets Provided: Anesthesia, [facility] DC Instructions After BEFAST-Stroke Warning Signs Discharge Information Dr. 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 Role on Team Location Telecom Status Start Date End Terence e Updated By SANTOSH LUNA Surgeon normal July 09, 2025 10:40:00 AM [facility] July 09, 2025 6:40:00 PM [facility] [id number] on July 11, 2025 2:32:19 PM [facility] normal July 09, 2025 10:42:34 AM [facility] July 09, 2025 6:40:00 PM [facility] [id number] on July 11, 2025 2:32:19 PM [facility] SANTOSH LUNA Referring normal July 09, 2025 10:42:34 AM [facility] July 09, 2025 6:40:00 PM [facility] [id number] on July 11, 2025 2:32:19 PM [facility]AN [facility]S PCP normal July 03, 2025 2:39:53 PM [facility] July 09, 2025 10:42:34 AM [facility] [id number] on July 11, 2025 2:32:19 PM [facility] SANTOSH LUNA Attending normal July 03, 2025 2:39:52 PM [facility] July 09, 2025 6:40:00 PM [facility] [id number] on July 11, 2025 2:32:19 PM [facility] SANTOSH LUNA Admitting normal July 03, 2025 2:39:52 PM [facility] July 09, 2025 6:40:00 PM [facility] [id number] on July 11, 2025 2:32:19 PM [facility]
--- NOTE | 2025-08-06 07:51 | MM_ITS ---
PROCEDURE INFORMATION: Exam: MG Bilateral Screening 3D Mammography Exam date and time: 08/06/2025 8:08 AM Age: 50 years old Clinical indication: Screening examination TECHNIQUE: Imaging protocol: Bilateral Screening tomosynthesis and 2D mammography including computer-aided detection (CAD) when performed. COMPARISON: No relevant prior studies available. FINDINGS: MAMMOGRAPHY: Breast composition: There are scattered areas of fibroglandular density. Mass: None. Architectural distortion: None. Calcifications: No suspicious calcifications. Asymmetric density: None. Skin thickening: None. Axillary adenopathy: None. IMPRESSION: No mammographic evidence of malignancy. Annual screening is recommended unless otherwise clinically indicated. ASSESSMENT: BI-RADS Category 1: Negative.
--- OUTSIDE RECORDS SUMMARY | 2025-08-06 07:52 | XMS_ITS ---
Author Name [facility] Organization Unknown Care Team Organization Name Specialty Phone Email Start Date End Young velazquez [facility]
--- OUTSIDE RECORDS SUMMARY | 2025-08-06 07:52 | XMS_ITS | Clinical Summary ---
Author Organization [facility] Address [address] [place] [address] Care Team Providers Care Warehouse Insulation Worker Name Role Phone Shaun García MD Primary Care Provider [phone] Allergies Active Allergy Reactions Criticality Noted Date [...] 02/28/2021 Sigmoidoscopy 02/28/2021 [facility]-Colorectal Cancer Screening 02/28/2021 [id number] Vaccine (1 - 20 25- season) 2025 [facility]-Influenza Vaccine (#1) 2025 [facility]-Zoster Vaccines (1 [...] complete this topic Insurance JASON Care Teams Warehouse Insulation Worker Relationship Specialty Start Date End Date Shaun García MD [address] [place] [address] [place] [address] PCP - General 01/10/21
== END 2025-08-06 23:59 | disposition home or self-care (01) ==
LOC: RAD 07:50
PROVIDERS: PCP Nurse Practitioner Family; Visit Provider Nurse Practitioner Family
DX: Z12.31 Encounter for screening mammogram for malignant neoplasm of breast (principal); R92.323 Mammographic fibroglandular density, bilateral breasts
CPT/HCPCS: 77063; 77067